=== PATIENT | male | born 1940 | race Caucasian/White ===

== ENCOUNTER 2017-09-28 09:18 | Day surgery (SDC) | payer MEDICARE, MEDICAID ==
[~2017-09-28 09:18] MED LIST: ALPR0.5T; AMIODORONE PO; B12 PO; DIGO0.1262 PO; FURO40TA PO; GLIP-115 PO; LEVO75TA6; MAG PO; METO25TA62 PO; POTA8TAB2 PO; VIT C PO; [UNRECOGNIZED DRUG - CODE] PO
[2017-09-28] MEDS ORDERED: LIDOCAINE VISCOUS 2% 15ML UD PO ONE (10:15)
[2017-09-28] MEDS ORDERED: FLUMAZENIL 0.1 MG/ML INJ 10ML MDV IV ONE (10:15)
[2017-09-28] MEDS ORDERED: NALOXONE HCL 0.4 MG/ML VIAL IV ONE (10:15)
[2017-09-28] MEDS ORDERED: MIDAZOLAM HCL 1MG/1ML-2 ML VIAL IV ONE (10:15)
[2017-09-28] MEDS ORDERED: fentaNYL CITRATE 100 MCG/2 ML VL IV ONE (10:15)
[2017-09-28] MEDS ORDERED: MIDAZOLAM HCL 1MG/1ML-2 ML VIAL ONE (11:17)
[2017-09-28] MEDS ORDERED: POTASSIUM CHL 20 Meq TABLET PO ONE ×2 (12:15→13:03)
[2017-09-28] MEDS ORDERED: ENOXAPARIN SOD 80 MG/0.8ML SYRINGE SC ONE (12:15)
[2017-09-28] MEDS ORDERED: FUROSEMIDE 100 MG/10ML VIAL IV ONE (12:15)
[2017-09-28] MEDS ORDERED: FUROSEMIDE INJECTION 10 ML ONE (13:02)
[2017-09-28] MEDS ORDERED: ENOXAPARIN SOD 100 MG/1 ML SYRINGE SC ONE (13:03)
== END 2017-09-28 14:20 | disposition home or self-care (01) ==
LOC: CATH 09:18
PROVIDERS: ATTEND Internal Medicine Cardiovascular Disease
DX: I48.91 Unspecified atrial fibrillation (principal); Z88.0 Allergy status to penicillin; Z88.2 Allergy status to sulfonamides; Z88.1 Allergy status to other antibiotic agents; Z88.8 Allergy status to other drugs, medicaments and biological substances; I50.9 Heart failure, unspecified; I20.9 Angina pectoris, unspecified; Z95.1 Presence of aortocoronary bypass graft; J40 Bronchitis, not specified as acute or chronic; Z87.891 Personal history of nicotine dependence; I10 Essential (primary) hypertension
CPT/HCPCS: 82962; 92960; 93312; J1650; J1940; J2250; J3010; J7040; 93005; 99152

== ENCOUNTER 2017-10-05 18:39 | Inpatient (IN) | payer MEDICARE, MEDICAID ==
[~2017-10-05] VITALS: Ht 177.8 cm; Wt 79.5 kg
[2017-10-05 20:01] LABS: Basophils # (auto) 0.1 uL; Basophils % (auto) 0.9 % (0.0-2.0); Eosinophils # (auto) 0.3 uL; Eosinophils % (auto) 4.2 % (0.0-7.0); Hematocrit 36.6 % (41.0-53.0); Hemoglobin 12.3 g/dL (13.5-17.5); Lymphocytes # (auto) 1.7 uL; Lymphocytes % (auto) 27.4 % (10.0-50.0); Mean Corpuscular Hemoglobin 30.2 pg (28.0-32.0); Mean Corpuscular Hgb Conc. 33.5 g/dL (32.0-36.0); Monocytes # (auto) 0.8 uL; Monocytes % (auto) 13.8 % (0.0-12.0); Neutrophils # (auto) 3.3 uL; Neutrophils % (auto) 53.7 % (37.0-80.0); Nucleated Red Blood Cells % 0.1 %; Platelet Count (auto) 280 10^3/uL (140-450); Red Blood Cells 4.07 10^6/uL (4.5-5.90); Red Cell Distribution Width 13.6 % (11.8-14.3); White Blood Cell 6.1 10^3/uL (4.4-10.8)
[2017-10-05 20:15] LABS: Alanine Aminotransferase 68 U/L (16-61); Albumin 3.4 g/dL (3.4-5.0); Anion Gap 9 (5-15); Aspartate Aminotransferase 39 U/L (15-37); BUN/Creatinine Ratio 25.6; Blood Urea Nitrogen 22 mg/dL (7-18); Calcium 8.9 mg/dL (8.5-10.1); Carbon Dioxide 28 mmol/L (21-32); Chloride 99 mmol/L (98-107); GFR African American 110 mL/min; GFR Non-African American 91 mL/min; Glucose 94 mg/dL (74-106); Magnesium 2.2 mg/dL (1.6-2.6); Potassium 4.2 mmol/L (3.5-5.1); Sodium 136 mmol/L (136-145)
[2017-10-05 20:20] LABS: Alkaline Phosphatase 113 U/L (45-117); Bilirubin, Total 0.4 mg/dL (0.2-1.0); Total Protein 7.7 g/dL (6.4-8.2)
[2017-10-06 02:47] LABS: Eosinophils # (auto) 0.1 uL; Hematocrit 41.2 % (41.0-53.0); Hemoglobin 13.3 g/dL (13.5-17.5); Mean Corpuscular Hemoglobin 26.5 pg (28.0-32.0); Monocytes # (auto) 0.4 uL; Nucleated Red Blood Cells % 0.1 %; Platelet Count (auto) 95 10^3/uL (140-450); White Blood Cell 6.2 10^3/uL (4.4-10.8)
[2017-10-06 02:49] LABS: Basophils # (auto) 0.1 uL; Basophils % (auto) 0.9 % (0.0-2.0); Eosinophils % (auto) 1.2 % (0.0-7.0); Lymphocytes # (auto) 2.2 uL; Lymphocytes % (auto) 34.7 % (10.0-50.0); Mean Corpuscular Hgb Conc. 32.4 g/dL (32.0-36.0); Monocytes % (auto) 5.9 % (0.0-12.0); Neutrophils # (auto) 3.6 uL; Neutrophils % (auto) 57.3 % (37.0-80.0); Red Blood Cells 5.02 10^6/uL (4.5-5.90); Red Cell Distribution Width 17.5 % (11.8-14.3)
[2017-10-06 02:59] LABS: Albumin 3.5 g/dL (3.4-5.0); BUN/Creatinine Ratio 16.9; Bilirubin, Total 0.9 mg/dL (0.2-1.0); Calcium 8.2 mg/dL (8.5-10.1); Potassium 4.3 mmol/L (3.5-5.1); Total Protein 7.6 g/dL (6.4-8.2)
[2017-10-06 05:23] LABS: Urine Bacteria FEW /hpf (None Seen); Urine Blood Negative /uL (Negative); Urine Hyaline Cast FEW /lpf (0 - 2); Urine Mucus FEW (None Seen); Urine Specific Gravity 1.012 (1.001-1.035); Urine WBC <1 /hpf (0 - 3)
[2017-10-06] MEDS ORDERED: LEVOFLOXACIN 500MG 100 ML IV ONE (09:00)
[2017-10-06] MEDS ORDERED: NITROGLYCERIN 0.4 MG SL TAB SL PRN (09:30)
[2017-10-06] MEDS ORDERED: LORazepam 0.5 MG TAB PO PRN (09:30)
[2017-10-06] MEDS ORDERED: MORPHINE SULFATE 10 MG/ML INJ 1ML SDV IV PRN ×2 (09:30)
[2017-10-06] MEDS ORDERED: PROMETHAZINE HCL 25 MG/ML 1ML IV PRN (09:30)
[2017-10-06] MEDS ORDERED: ALBUTEROL SULF 2.5 MG/0.5ML(0.5%) NEB SOLN NEB PRN (09:30)
[2017-10-06] MEDS ORDERED: LACTULOSE 20Gm/30ML SOLN PO PRN (09:30)
[2017-10-06] MEDS ORDERED: ACETAMINOPHEN 500 MG TAB PO PRN (09:30)
[2017-10-06] MEDS ORDERED: OSELTAMIVIR 75 MG CAP PO ONE (09:30)
[2017-10-06] MEDS ORDERED: HYDROcodone-ACET 5/325MG TAB PO PRN (09:30)
[2017-10-06] MEDS ORDERED: FUROSEMIDE 40 MG TAB PO SCH (09:30)
[2017-10-06] MEDS ORDERED: TEMAZEPAM 15 MG CAP PO PRN (09:30)
[2017-10-06] MEDS ORDERED: DEXTROSE (50%) 50ML SYRG IV PRN (09:30)
[2017-10-06] MEDS ORDERED: OSELTAMIVIR 75 MG CAP PO SCH (10:00)
[2017-10-06] MEDS ORDERED: AMIODARONE HCL 200 MG TAB PO SCH (10:15)
[2017-10-06] MEDS ORDERED: cefTRIAXone 1GM/10ml IVPUSH 10 ML IV ONE (10:15)
[2017-10-06] MEDS: CARVEDILOL 3.125 MG TAB PO SCH ×2 (10:25→22:30)
[2017-10-06] MEDS: ASPirin 81 mg TAB PO SCH (10:25)
[2017-10-06] MEDS: AZITHROMYCIN 500MG/ 250ML 250 ML IV SCH (10:25)
[2017-10-06] MEDS: glipiZIDE 5 MG TAB PO SCH (10:26)
[2017-10-06] MEDS: POTASSIUM CHLORIDE 8 MEQ TAB PO SCH (10:26)
[2017-10-06] MEDS: ENOXAPARIN SOD 40 MG/0.4 ML SYRINGE SC SCH (10:27)
[2017-10-06] MEDS: DIGOXIN 0.125 MG TAB PO SCH (10:27)
[2017-10-06] MEDS: ENALAPRIL MALEATE 2.5 MG TAB PO SCH ×2 (10:27→10:40)
[2017-10-06] MEDS: CYANOCOBALAMIN 500 MCG TAB PO SCH (10:28)
[2017-10-06] MEDS: MAGNESIUM OXIDE 400 MG TAB PO SCH (10:28)
[2017-10-06] MEDS: NITROGLYCERIN 0.2MG/HR TOPICAL PATCH TD SCH (10:30)
[2017-10-06] MEDS: ACCU-CHEK COMFORT CURVE STRIP VI SCH ×3 (11:53→22:29)
[2017-10-06] MEDS: InsuLIN REG 1unit/0.01ml Soln (100units/ml) SC SCH ×3 (11:53→22:30)
[2017-10-06] MEDS: ALBUTEROL SULF 2.5 MG/0.5ML(0.5%) NEB SOLN NEB SCH ×4 (13:11→23:10)
[2017-10-06] MEDS: SODIUM CHLOR 0.9% PF (SALINE LOCK) 10ML VIAL IV SCH ×2 (13:22→22:30)
[2017-10-06] MEDS: AMIODARONE HCL 200 MG TAB PO SCH (14:11)
[2017-10-06 17:00] VITALS: BP 108/67
[2017-10-06 21:50] VITALS: BP 97/53
[2017-10-06] MEDS: ASCORBIC ACID 500 MG TAB PO SCH (22:30)
[2017-10-07 03:35] VITALS: BP 97/53
[2017-10-07 05:32] VITALS: BP 98/55
[2017-10-07 05:54] LABS: Basophils # (auto) 0 uL; Eosinophils # (auto) 0 uL; Hemoglobin 12.2 g/dL (13.5-17.5); Lymphocytes # (auto) 0.9 uL; Monocytes # (auto) 0.2 uL; Neutrophils # (auto) 2.2 uL; Neutrophils % (auto) 65.9 % (37.0-80.0); Nucleated Red Blood Cells % 0.1 %; White Blood Cell 3.3 10^3/uL (4.4-10.8)
[2017-10-07 05:56] LABS: Basophils % (auto) 0.7 % (0.0-2.0); Eosinophils % (auto) 1.3 % (0.0-7.0); Lymphocytes % (auto) 26.1 % (10.0-50.0); Mean Corpuscular Hemoglobin 26.9 pg (28.0-32.0); Mean Corpuscular Volume 81.4 fL (80.0-100.0); Red Blood Cells 4.55 10^6/uL (4.5-5.90); Red Cell Distribution Width 17.2 % (11.8-14.3)
[2017-10-07 06:11] LABS: Platelet Count (auto) 64 10^3/uL (140-450)
[2017-10-07 06:19] LABS: BUN/Creatinine Ratio 15.7; Calcium 8.1 mg/dL (8.5-10.1); Potassium 4.4 mmol/L (3.5-5.1); Total Protein 7.1 g/dL (6.4-8.2)
[2017-10-07] MEDS: SODIUM CHLOR 0.9% PF (SALINE LOCK) 10ML VIAL IV SCH ×2 (06:26→14:08)
[2017-10-07] MEDS: ALBUTEROL SULF 2.5 MG/0.5ML(0.5%) NEB SOLN NEB SCH ×2 (06:32→11:32)
[2017-10-07] MEDS: ACCU-CHEK COMFORT CURVE STRIP VI SCH ×2 (06:33→11:24)
[2017-10-07] MEDS: InsuLIN REG 1unit/0.01ml Soln (100units/ml) SC SCH ×2 (06:33→11:30)
[2017-10-07 07:59] VITALS: BP 99/51
[2017-10-07] MEDS ORDERED: cefTRIAXone 1GM/10ml IVPUSH 10 ML IV SCH (09:00)
[2017-10-07] MEDS: ENOXAPARIN SOD 40 MG/0.4 ML SYRINGE SC SCH (09:01)
[2017-10-07] MEDS: AZITHROMYCIN 500MG/ 250ML 250 ML IV SCH (09:11)
[2017-10-07] MEDS: ASCORBIC ACID 500 MG TAB PO SCH (09:11)
[2017-10-07] MEDS: MAGNESIUM OXIDE 400 MG TAB PO SCH (09:12)
[2017-10-07] MEDS: DIGOXIN 0.125 MG TAB PO SCH (09:12)
[2017-10-07] MEDS: ASPirin 81 mg TAB PO SCH (09:12)
[2017-10-07] MEDS: CYANOCOBALAMIN 500 MCG TAB PO SCH (09:12)
[2017-10-07] MEDS: POTASSIUM CHLORIDE 8 MEQ TAB PO SCH (09:12)
[2017-10-07] MEDS: glipiZIDE 5 MG TAB PO SCH (09:13)
[2017-10-07] MEDS: ENALAPRIL MALEATE 2.5 MG TAB PO SCH (09:47)
[2017-10-07] MEDS: CARVEDILOL 3.125 MG TAB PO SCH (09:47)
[2017-10-07] MEDS: NITROGLYCERIN 0.2MG/HR TOPICAL PATCH TD SCH (09:47)
[2017-10-07] MEDS ORDERED: METOPROLOL SUCCINATE XL 50 MG TAB PO SCH (10:00)
[2017-10-07] MEDS ORDERED: LEVOTHYROXINE SODIUM 50 MCG TAB PO SCH (10:00)
[2017-10-07 13:00] VITALS: BP 99/57
[2017-10-07] MEDS: AMIODARONE HCL 200 MG TAB PO SCH (14:08)
[2017-10-07] MEDS ORDERED: ALBUAER3 IN (15:36)
[2017-10-07] MEDS ORDERED: AZIT250T8 PO (15:36)
[2017-10-07 16:57] VITALS: BP 109/62
== END 2017-10-07 16:56 | disposition home or self-care (01) | DRG 291 ==
LOC: EDBD 18:39 → ER 18:42 → TELE 18:43 → TELE-WESTW 10-06 12:15
PROVIDERS: ADMIT Internal Medicine; ATTEND Nurse Practitioner Acute Care
DX: I13.0 Hypertensive heart and chronic kidney disease with heart failure and stage 1 through stage 4 chronic kidney disease, or unspecified chronic kidney disease (principal); I50.43 Acute on chronic combined systolic (congestive) and diastolic (congestive) heart failure; J18.9 Pneumonia, unspecified organism; D68.59 Other primary thrombophilia; E11.22 Type 2 diabetes mellitus with diabetic chronic kidney disease; I48.0 Paroxysmal atrial fibrillation; N18.3 Chronic kidney disease, stage 3 (moderate); I25.5 Ischemic cardiomyopathy; I25.10 Atherosclerotic heart disease of native coronary artery without angina pectoris; K59.00 Constipation, unspecified; E03.9 Hypothyroidism, unspecified; I25.2 Old myocardial infarction; Z80.0 Family history of malignant neoplasm of digestive organs; Z82.49 Family history of ischemic heart disease and other diseases of the circulatory system; Z83.3 Family history of diabetes mellitus; Z87.891 Personal history of nicotine dependence; Z95.1 Presence of aortocoronary bypass graft; Z95.810 Presence of automatic (implantable) cardiac defibrillator; Z90.49 Acquired absence of other specified parts of digestive tract; Z80.8 Family history of malignant neoplasm of other organs or systems; Z95.5 Presence of coronary angioplasty implant and graft; Z88.2 Allergy status to sulfonamides; Z88.0 Allergy status to penicillin; Z88.8 Allergy status to other drugs, medicaments and biological substances; Z79.899 Other long term (current) drug therapy
CPT/HCPCS: 36415; 71045; 71250; 80053; 80061; 81001; 82550; 82962; 83036; 83735; 83880; 84443; 84484; 85025; 87040; 87070; 87081; 87205; 87400; 93005; 94640; 96365; 96367; 96372; J1815; J1956

== ENCOUNTER 2018-02-26 02:08 | Inpatient (IN) | payer MEDICARE, MEDICAID ==
[~2018-02-26] VITALS: Ht 177.8 cm; Wt 64.8 kg
[~2018-02-26 02:08] MED LIST changes: +ALBUAER3 IN; +AZIT250T8 PO
[2018-02-26 03:18] LABS: Platelet Count (auto) 38 10^3/uL (140-450); White Blood Cell 4.1 10^3/uL (4.4-10.8)
[2018-02-26 03:20] LABS: Hematocrit 38.3 % (41.0-53.0); Hemoglobin 12.4 g/dL (13.5-17.5); Mean Corpuscular Hemoglobin 25.7 pg (28.0-32.0); Mean Corpuscular Hgb Conc. 32.5 g/dL (32.0-36.0); Mean Corpuscular Volume 79.1 fL (80.0-100.0); Red Blood Cells 4.84 10^6/uL (4.5-5.90); Red Cell Distribution Width 15.4 % (11.8-14.3)
[2018-02-26 03:26] LABS: Basophils % (manual) 0 (0.0-2.0); Blast Cells 0; Metamyelocytes % 0; Myelocytes % 0; Promyelocytes % 0; Reactive Lymphocytes 0
[2018-02-26 03:32] LABS: Albumin 3.8 g/dL (3.4-5.0); Magnesium 2.3 mg/dL (1.6-2.6); Potassium 3.2 mmol/L (3.5-5.1)
[2018-02-26 03:34] LABS: BUN/Creatinine Ratio 14.1
[2018-02-26 03:39] LABS: Bilirubin, Total 0.6 mg/dL (0.2-1.0); Total Protein 8.5 g/dL (6.4-8.2)
[2018-02-26 03:57] LABS: Band Neutrophils % (manual) 4; Eosinophils % (manual) 1 (0-7); Lymphocytes % (manual) 20 (10.0-50.0); Monocytes % (manual) 6 (0-12)
[2018-02-26] MEDS ORDERED: POTASSIUM CHL 20 Meq TABLET PO ONE ×3 (05:15→18:15)
[2018-02-26] MEDS ORDERED: FUROSEMIDE 20 MG/2 ML VIAL IV ONE (05:15)
[2018-02-26 05:36] LABS: Urine Bacteria FEW /hpf (None Seen); Urine Blood Negative /uL (Negative); Urine Mucus FEW (None Seen); Urine Specific Gravity 1.005 (1.001-1.035); Urine WBC <1 /hpf (0 - 3)
[2018-02-26] MEDS ORDERED: NITROGLYCERIN 0.4 MG SL TAB SL PRN (05:45)
[2018-02-26] MEDS ORDERED: ACETAMINOPHEN 325 MG TAB PO PRN (05:45)
[2018-02-26] MEDS ORDERED: MORPHINE SULF(PF) 0.5MG/ML 10ML VIAL IV PRN (05:45)
[2018-02-26] MEDS ORDERED: ALBUTEROL SULF 2.5 MG/0.5ML(0.5%) NEB SOLN NEB PRN (05:45)
[2018-02-26] MEDS ORDERED: TEMAZEPAM 15 MG CAP PO PRN (05:45)
[2018-02-26] MEDS ORDERED: DOCUSATE SOD 100 MG CAP PO PRN (05:45)
[2018-02-26] MEDS ORDERED: ONDANSETRON HCL 4 MG/2 ML VIAL IV PRN (05:45)
[2018-02-26] MEDS ORDERED: HYDROcodone-ACET 5/325MG TAB PO PRN (05:45)
[2018-02-26] MEDS: FUROSEMIDE 20 MG/2 ML VIAL IV SCH ×2 (06:00→18:00)
[2018-02-26 06:04] VITALS: BP 128/60
[2018-02-26] MEDS ORDERED: glyBURIDE 5 MG TAB PO SCH (07:00)
[2018-02-26] MEDS: LEVOTHYROXINE SODIUM 25 MCG TAB PO SCH (07:08)
[2018-02-26] MEDS: glipiZIDE 5 MG TAB PO SCH (08:24)
[2018-02-26] MEDS ORDERED: ENOXAPARIN SOD 30 MG/0.3 ML SYRINGE SC SCH (10:00)
[2018-02-26] MEDS ORDERED: ASPirin 81 mg TAB PO SCH (10:00)
[2018-02-26] MEDS ORDERED: AMIODARONE HCL 200 MG TAB PO SCH (10:00)
[2018-02-26] MEDS ORDERED: ENOXAPARIN SOD 40 MG/0.4 ML SYRINGE SC SCH (10:00)
[2018-02-26] MEDS: POTASSIUM CHL 20 Meq TABLET PO SCH (10:41)
[2018-02-26] MEDS: METOPROLOL SUCCINATE XL 50 MG TAB PO SCH (10:42)
[2018-02-26] MEDS: PANTOPRAZOLE 40 MG TAB PO SCH (10:42)
[2018-02-26] MEDS: DIGOXIN 0.125 MG TAB PO SCH (10:42)
[2018-02-26 18:09] VITALS: BP 128/68
[2018-02-26] MEDS ORDERED: MEX150C PO (21:37)
[2018-02-26 22:00] VITALS: BP 124/55
[2018-02-26] MEDS ORDERED: HYDROcodone-ACET 5/325MG TAB PO ONE (22:45)
[2018-02-27 05:22] VITALS: BP 109/63
[2018-02-27] MEDS: HYDROcodone-ACET 5/325MG TAB PO PRN ×4 (05:30→23:16)
[2018-02-27] MEDS: FUROSEMIDE 20 MG/2 ML VIAL IV SCH ×2 (05:56→18:02)
[2018-02-27] MEDS: LEVOTHYROXINE SODIUM 25 MCG TAB PO SCH (06:28)
[2018-02-27] MEDS: glipiZIDE 5 MG TAB PO SCH (06:34)
[2018-02-27 07:55] LABS: Basophils # (auto) 0 uL; Eosinophils # (auto) 0.1 uL; Hemoglobin 10.6 g/dL (13.5-17.5); Lymphocytes # (auto) 1.1 uL; Monocytes # (auto) 0.3 uL
[2018-02-27 07:58] LABS: Hematocrit 33.1 % (41.0-53.0); Lymphocytes % (auto) 31.4 % (10.0-50.0); Mean Corpuscular Hemoglobin 25.6 pg (28.0-32.0); Mean Corpuscular Hgb Conc. 32.1 g/dL (32.0-36.0); Mean Corpuscular Volume 79.9 fL (80.0-100.0); Monocytes % (auto) 8.3 % (0.0-12.0); Neutrophils % (auto) 57.3 % (37.0-80.0); Nucleated Red Blood Cells % 0.1 %; Platelet Count (auto) 32 10^3/uL (140-450); Red Blood Cells 4.14 10^6/uL (4.5-5.90); Red Cell Distribution Width 15.5 % (11.8-14.3); White Blood Cell 3.5 10^3/uL (4.4-10.8)
[2018-02-27 08:20] LABS: Albumin 3.2 g/dL (3.4-5.0); BUN/Creatinine Ratio 16.5; Potassium 4.2 mmol/L (3.5-5.1); Total Protein 7.1 g/dL (6.4-8.2)
[2018-02-27 09:00] VITALS: BP 106/57
[2018-02-27] MEDS: DIGOXIN 0.125 MG TAB PO SCH (09:51)
[2018-02-27] MEDS: PANTOPRAZOLE 40 MG TAB PO SCH (09:52)
[2018-02-27] MEDS: METOPROLOL SUCCINATE XL 50 MG TAB PO SCH (09:52)
[2018-02-27] MEDS: POTASSIUM CHL 20 Meq TABLET PO SCH (09:52)
[2018-02-27] MEDS ORDERED: DEXTROSE (50%) 50ML SYRG IV PRN (11:45)
[2018-02-27 13:00] VITALS: BP 114/66
[2018-02-27] MEDS: ACCU-CHEK COMFORT CURVE STRIP VI SCH ×3 (13:39→21:38)
[2018-02-27] MEDS: InsuLIN REG 1unit/0.01ml Soln (100units/ml) SC SCH ×3 (13:39→21:38)
[2018-02-27 17:00] VITALS: BP 117/62
[2018-02-27] MEDS ORDERED: AMIODARONE HCL 200 MG TAB PO SCH (19:00)
[2018-02-27 22:00] VITALS: BP 125/69
[2018-02-28 05:00] VITALS: BP 110/52
[2018-02-28] MEDS: FUROSEMIDE 20 MG/2 ML VIAL IV SCH (05:33)
[2018-02-28] MEDS: LEVOTHYROXINE SODIUM 25 MCG TAB PO SCH (06:57)
[2018-02-28] MEDS: glipiZIDE 5 MG TAB PO SCH (06:57)
[2018-02-28] MEDS: ACCU-CHEK COMFORT CURVE STRIP VI SCH ×2 (06:59→11:32)
[2018-02-28] MEDS: InsuLIN REG 1unit/0.01ml Soln (100units/ml) SC SCH ×2 (06:59→11:32)
[2018-02-28 07:06] LABS: Basophils # (auto) 0 uL; Basophils % (auto) 0.5 % (0.0-2.0); Lymphocytes # (auto) 1.1 uL; Monocytes # (auto) 0.3 uL; Monocytes % (auto) 7.9 % (0.0-12.0); White Blood Cell 4.1 10^3/uL (4.4-10.8)
[2018-02-28 07:09] LABS: Eosinophils # (auto) 0 uL; Hematocrit 33.6 % (41.0-53.0); Hemoglobin 11.1 g/dL (13.5-17.5); Lymphocytes % (auto) 26.1 % (10.0-50.0); Mean Corpuscular Hemoglobin 25.9 pg (28.0-32.0); Mean Corpuscular Hgb Conc. 32.9 g/dL (32.0-36.0); Mean Corpuscular Volume 78.7 fL (80.0-100.0); Neutrophils # (auto) 2.7 uL; Neutrophils % (auto) 64.5 % (37.0-80.0); Platelet Count (auto) 30 10^3/uL (140-450); Red Blood Cells 4.27 10^6/uL (4.5-5.90); Red Cell Distribution Width 15.9 % (11.8-14.3)
[2018-02-28 07:30] LABS: BUN/Creatinine Ratio 18.6; Calcium 8.4 mg/dL (8.5-10.1); Magnesium 2.6 mg/dL (1.6-2.6); Potassium 4.2 mmol/L (3.5-5.1)
[2018-02-28] MEDS: HYDROcodone-ACET 5/325MG TAB PO PRN (07:55)
[2018-02-28 08:00] VITALS: BP 123/53
[2018-02-28] MEDS: DIGOXIN 0.125 MG TAB PO SCH (09:20)
[2018-02-28] MEDS: POTASSIUM CHL 20 Meq TABLET PO SCH (09:20)
[2018-02-28] MEDS: PANTOPRAZOLE 40 MG TAB PO SCH (09:20)
[2018-02-28] MEDS: METOPROLOL SUCCINATE XL 50 MG TAB PO SCH (09:26)
[2018-02-28 09:45] VITALS: BP 123/53
[2018-02-28 12:25] VITALS: BP 123/53
== END 2018-02-28 12:47 | disposition home or self-care (01) | DRG 291 ==
LOC: ER 02:08 → TELE 02:09 → TELE-CENTR 20:23
PROVIDERS: ADMIT Nurse Practitioner; ATTEND Internal Medicine
DX: I13.0 Hypertensive heart and chronic kidney disease with heart failure and stage 1 through stage 4 chronic kidney disease, or unspecified chronic kidney disease (principal); I50.43 Acute on chronic combined systolic (congestive) and diastolic (congestive) heart failure; D69.3 Immune thrombocytopenic purpura; D68.59 Other primary thrombophilia; Z98.52 Vasectomy status; Z95.1 Presence of aortocoronary bypass graft; I25.10 Atherosclerotic heart disease of native coronary artery without angina pectoris; N18.3 Chronic kidney disease, stage 3 (moderate); I48.0 Paroxysmal atrial fibrillation; I70.0 Atherosclerosis of aorta; E11.22 Type 2 diabetes mellitus with diabetic chronic kidney disease; E87.6 Hypokalemia; D69.6 Thrombocytopenia, unspecified; I25.5 Ischemic cardiomyopathy; E03.9 Hypothyroidism, unspecified; I25.2 Old myocardial infarction; Z82.49 Family history of ischemic heart disease and other diseases of the circulatory system; Z83.3 Family history of diabetes mellitus; Z95.810 Presence of automatic (implantable) cardiac defibrillator; Z98.61 Coronary angioplasty status; Z79.899 Other long term (current) drug therapy; Z88.1 Allergy status to other antibiotic agents; Z88.0 Allergy status to penicillin; Z88.6 Allergy status to analgesic agent
CPT/HCPCS: 36415; 71045; 80048; 80053; 80162; 81001; 82962; 83036; 83735; 83880; 84443; 84484; 85007; 85025; 85027; 87081; 93306; 96372; 96374; J1815

== ENCOUNTER 2019-05-15 05:40 | Emergency (ER) | payer MEDICARE, MEDICAID ==
[~2019-05-15] VITALS: Ht 177.8 cm; Wt 77.1 kg
[~2019-05-15 05:40] MED LIST changes: +FURO1TAB31 PO; -FURO40TA PO; -GLIP-115 PO; +MEX150C PO
[2019-05-15] MEDS ORDERED: SODIUM CHLORIDE 0.9% 1,000 ML IV ONE (05:54)
[2019-05-15 06:13] LABS: Basophils # (auto) 0 uL; Eosinophils # (auto) 0.1 uL; Hemoglobin 12.5 g/dL (13.5-17.5); Lymphocytes # (auto) 1.2 uL; Nucleated Red Blood Cells % 0.1 %; Red Cell Distribution Width 16.8 % (11.8-14.3)
[2019-05-15 06:15] LABS: Basophils % (auto) 1.1 % (0.0-2.0); Eosinophils % (auto) 1.7 % (0.0-7.0); Hematocrit 38.1 % (41.0-53.0); Lymphocytes % (auto) 32.9 % (10.0-50.0); Mean Corpuscular Hemoglobin 28.2 pg (28.0-32.0); Mean Corpuscular Hgb Conc. 32.8 g/dL (32.0-36.0); Mean Corpuscular Volume 85.7 fL (80.0-100.0); Monocytes # (auto) 0.4 uL; Monocytes % (auto) 9.7 % (0.0-12.0); Neutrophils % (auto) 54.6 % (37.0-80.0); Red Blood Cells 4.45 10^6/uL (4.5-5.90); White Blood Cell 3.7 10^3/uL (4.4-10.8)
[2019-05-15 06:40] LABS: Albumin 3.3 g/dL (3.4-5.0); BUN/Creatinine Ratio 12.5; Calcium 8.1 mg/dL (8.5-10.1); Potassium 3.8 mmol/L (3.5-5.1)
[2019-05-15 06:42] LABS: Platelet Count (auto) 45 10^3/uL (140-450)
[2019-05-15 06:44] LABS: Bilirubin, Total 0.7 mg/dL (0.2-1.0); Total Protein 7.2 g/dL (6.4-8.2)
[2019-05-15 07:04] LABS: Urine WBC None Seen /hpf (0 - 3)
[2019-05-15 07:10] LABS: Urine Bacteria FEW /hpf (None Seen); Urine Blood Negative /uL (Negative); Urine Mucus FEW (None Seen); Urine Specific Gravity 1.004 (1.001-1.035)
[2019-05-15] MEDS ORDERED: FUROSEMIDE 20 MG/2 ML VIAL IV ONE (07:45)
[2019-05-15 08:42] VITALS: BP 144/65
== END 2019-05-15 09:10 | disposition home or self-care (01) ==
LOC: ER 05:44
DX: R55 Syncope and collapse (principal); E11.22 Type 2 diabetes mellitus with diabetic chronic kidney disease; N18.3 Chronic kidney disease, stage 3 (moderate); I50.9 Heart failure, unspecified; I48.91 Unspecified atrial fibrillation; I25.810 Atherosclerosis of coronary artery bypass graft(s) without angina pectoris; I25.2 Old myocardial infarction; E07.9 Disorder of thyroid, unspecified; Z88.1 Allergy status to other antibiotic agents; Z88.2 Allergy status to sulfonamides; Z88.0 Allergy status to penicillin; Z79.899 Other long term (current) drug therapy; Z90.49 Acquired absence of other specified parts of digestive tract; Z95.1 Presence of aortocoronary bypass graft; Z98.61 Coronary angioplasty status
CPT/HCPCS: 36415; 70450; 71045; 73030; 80053; 81001; 82962; 83880; 84484; 85025; 96361; 96374; 99284; J1940; J7030; 93005

== ENCOUNTER 2019-06-09 00:41 | Inpatient (IN) | payer MEDICARE, MEDICAID ==
[~2019-06-09] VITALS: Ht 177.8 cm; Wt 90.8 kg
[~2019-06-09 00:41] MED LIST changes: -LEVO75TA6; +LEVO75TA6 PO
[2019-06-09 02:32] LABS: Albumin 3.2 g/dL (3.4-5.0); BUN/Creatinine Ratio 20.3; Magnesium 2.2 mg/dL (1.6-2.6); Potassium 4.3 mmol/L (3.5-5.1)
[2019-06-09 02:37] LABS: Bilirubin, Total 0.8 mg/dL (0.2-1.0); Total Protein 6.9 g/dL (6.4-8.2)
[2019-06-09 02:46] LABS: Basophils # (auto) 0 uL; Eosinophils # (auto) 0 uL; Hemoglobin 10.8 g/dL (13.5-17.5); Neutrophils # (auto) 2.8 uL; Red Cell Distribution Width 16.2 % (11.8-14.3)
[2019-06-09 02:47] LABS: Basophils % (auto) 0.9 % (0.0-2.0); Eosinophils % (auto) 0.9 % (0.0-7.0); Hematocrit 32.2 % (41.0-53.0); Lymphocytes % (auto) 23.6 % (10.0-50.0); Mean Corpuscular Hemoglobin 28.6 pg (28.0-32.0); Mean Corpuscular Hgb Conc. 33.7 g/dL (32.0-36.0); Mean Corpuscular Volume 84.9 fL (80.0-100.0); Monocytes # (auto) 0.3 uL; Monocytes % (auto) 6.6 % (0.0-12.0); Platelet Count (auto) 59 10^3/uL (140-450); Red Blood Cells 3.79 10^6/uL (4.5-5.90); White Blood Cell 4.1 10^3/uL (4.4-10.8)
[2019-06-09] MEDS: CLOPIDOGREL BISULFATE 75 MG TAB PO SCH ×2 (10:00→11:29)
[2019-06-09] MEDS ORDERED: ASPirin-EC 81 mg tab PO ONE (11:45)
[2019-06-09] MEDS ORDERED: NITROGLYCERIN 0.4 MG SL TAB SL PRN (11:45)
[2019-06-09] MEDS: SODIUM CHLORIDE 0.9% 1,000 ML IV SCH ×2 (11:45→21:23)
[2019-06-09] MEDS ORDERED: MORPHINE SULF INJ 2 MG/ML SYRINGE 1ML IV PRN (11:45)
[2019-06-09] MEDS ORDERED: FUROSEMIDE 40 MG TAB PO SCH (11:45)
[2019-06-09] MEDS ORDERED: DEXTROSE (50%) 50ML SYRG IV PRN (12:00)
[2019-06-09] MEDS ORDERED: diphenhdrAMINE HCL 50 MG/1 ML VL IV ONE (12:15)
[2019-06-09] MEDS ORDERED: FAMOTIDINE (10MG/ML) 2ML VL IV ONE (12:15)
[2019-06-09] MEDS ORDERED: methylPREDNISolone SOD SUCC 125 MG/2 ML VL IV ONE (12:15)
[2019-06-09] MEDS ORDERED: IODIXANOL 320MG/ML 100ML BTL IV ONE (13:03)
[2019-06-09] MEDS ORDERED: INSUINJ18 SC (16:09)
[2019-06-09] MEDS ORDERED: METO-169 PO (16:09)
[2019-06-09] MEDS ORDERED: ACET-1158 PO (16:09)
[2019-06-09] MEDS ORDERED: BUDE2SUS3 IN (16:09)
[2019-06-09] MEDS ORDERED: MAGN400T5 PO (16:09)
[2019-06-09] MEDS ORDERED: AMIO200T33 PO (16:09)
[2019-06-09] MEDS ORDERED: ATOR40TA52 PO (16:09)
[2019-06-09] MEDS: ACCU-CHEK COMFORT CURVE STRIP VI SCH ×2 (16:35→21:55)
[2019-06-09] MEDS: InsuLIN REG 1unit/0.01ml Soln (100units/ml) SC SCH ×2 (16:35→21:54)
[2019-06-09 17:00] VITALS: BP 109/57
--- NOTE | 2019-06-09 19:00 | NUR ---
Opening Shift Note Assumed care of patient, awake and alert. No S/S of distress/SOB or pain. Instructed on POC and to call for assist PRN, will continue to monitor for changes Q1hr and PRN.
--- NOTE | 2019-06-09 21:56 | NUR ---
Hospitalist paged: Patient complaining of insomnia and having a history of difficulty sleeping. Hospitalist paged for sleeping aide.
[2019-06-09 22:00] VITALS: BP 118/59
--- NOTE | 2019-06-09 22:09 | NUR ---
Hospitalist returned page: Hospitalist updated on patient condition and situation. New orders received and verified.
[2019-06-09] MEDS: TEMAZEPAM 15 MG CAP PO PRN (22:36)
[2019-06-10 05:00] VITALS: BP 131/64
[2019-06-10] MEDS: InsuLIN REG 1unit/0.01ml Soln (100units/ml) SC SCH ×4 (06:30→21:39)
[2019-06-10] MEDS: ACCU-CHEK COMFORT CURVE STRIP VI SCH ×4 (06:31→21:39)
[2019-06-10] MEDS: LEVOTHYROXINE SODIUM 100 MCG TAB PO SCH (06:31)
[2019-06-10 07:17] LABS: Basophils # (auto) 0 uL; Basophils % (auto) 0.2 % (0.0-2.0); Eosinophils # (auto) 0 uL; Eosinophils % (auto) 0.1 % (0.0-7.0); Hematocrit 33.8 % (41.0-53.0); Hemoglobin 11.2 g/dL (13.5-17.5); Lymphocytes # (auto) 0.6 uL; Lymphocytes % (auto) 13.6 % (10.0-50.0); Mean Corpuscular Hemoglobin 28.5 pg (28.0-32.0); Mean Corpuscular Hgb Conc. 33.2 g/dL (32.0-36.0); Mean Corpuscular Volume 85.6 fL (80.0-100.0); Monocytes # (auto) 0.2 uL; Monocytes % (auto) 3.6 % (0.0-12.0); Neutrophils # (auto) 3.9 uL; Neutrophils % (auto) 82.5 % (37.0-80.0); Nucleated Red Blood Cells % 0.1 %; Platelet Count (auto) 67 10^3/uL (140-450); Red Blood Cells 3.95 10^6/uL (4.5-5.90); Red Cell Distribution Width 16.3 % (11.8-14.3); White Blood Cell 4.7 10^3/uL (4.4-10.8)
--- NOTE | 2019-06-10 07:23 | NUR ---
paging dr Parsons per the pharmacy's hold on plavix, due to patient having both aspirin and plavix with a low platelet count of 59 new labs are coming in for platelets this morning however speaking with admitting RAFIQ Waggoner, states cardio placed those orders in regards to the patient's CT Will confirm and clarify with dr Parsons and clarify with pharmacy
[2019-06-10 07:27] LABS: INR 1.23 (0.9-1.15); Partial Thromboplastin Time 35.2 sec (23.64-32.05)
[2019-06-10 07:33] LABS: Albumin 2.9 g/dL (3.4-5.0); BUN/Creatinine Ratio 22.3; Calcium 7.9 mg/dL (8.5-10.1); Potassium 4.6 mmol/L (3.5-5.1)
[2019-06-10 07:36] LABS: Bilirubin, Total 0.9 mg/dL (0.2-1.0); Total Protein 6.6 g/dL (6.4-8.2)
[2019-06-10] MEDS: SODIUM CHLORIDE 0.9% 1,000 ML IV SCH ×2 (07:47→17:29)
--- NOTE | 2019-06-10 07:47 | NUR ---
Opening patient awake in bed, bed in lowest position, call light within reach. No distress noted at this time. Will f/u with morning assessment. Currently pending cardiac consult with dr dean, and wound consult today new labs wbc 4.7 rbc 3.95 hgb 11.2 pt 13.1 inr 1.23 aptt 35.2 patient has a hold on plavix, per pharmacy, patient is on both plavix and aspirin. Awaiting return call from Issa to clarify these orders, however rut states to give the Aspirin, and talk with MD Dean about the plavix, because pharmacy has a hold currently
[2019-06-10 09:00] VITALS: BP 118/63
[2019-06-10] MEDS: METOPROLOL SUCCINATE XL 50 MG TAB PO SCH (09:19)
[2019-06-10] MEDS: AZITHROMYCIN 250 MG TAB PO SCH (09:19)
[2019-06-10] MEDS: ASPirin-EC 81 mg tab PO SCH (09:19)
[2019-06-10] MEDS ORDERED: MEXILETINE HYDROCHLORIDE 150 MG CAP PO SCH (10:00)
[2019-06-10] MEDS ORDERED: DIGOXIN 0.125 MG TAB PO SCH (10:00)
[2019-06-10] MEDS: AMIODARONE HCL 200 MG TAB PO SCH (10:00)
--- NOTE | 2019-06-10 10:15 | NUR ---
WOUND CARE NOTE: IN TO SEE PATIENT AT THIS TIME PER WOUND CARE CONSULT REQUEST. PATIENT NOTED TO HAVE OPEN WOUND TO LEFT WRIST AND ECCHYMOSIS TO LEFT HIP UPON ADMIT. WOUND PHOTOS TAKEN AT THAT TIME BY BEDSIDE NURSE FOR REFERENCE. PATIENT WAS ADMITTED TO [facility] WITH DIAGNOSIS NSTEMI. HE HAS CURRENT LOIS SCORE OF 18. PATIENT CAN SELF TURN/REPOSITION SELF. SKIN/WOUND CARE PLAN IMPLEMENTED. PATIENT NOTED TO HAVE SKIN TEAR TO THE LEFT WRIST. PATIENT STATES THAT HE OBTAINED SKIN TEAR WHILE AT ANOTHER FACILITY. WOUND MEASURES 2 X 2 CM. WOUND IS PARTIAL THICKNESS. APPLIED THERAHONEY, OPTIFOAM GENTLE DRESSING. 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 LEFT OPEN TO AIR. RECOMMEND: Q 3 DAY/PRN DRESSING CHANGE TO LEFT WRIST SKIN TEAR, SKIN/WOUND CARE PLAN, DIETARY CONSULT FOR WOUND. NO FURTHER WOUND CARE IS NEEDED AT THIS TIME. Addendum: 06/10/19 at 1706 by Becky Garza RN Amended: Links added.
[2019-06-10 13:00] VITALS: BP 110/57
[2019-06-10] MEDS ORDERED: THROAT LOZENGES(CEPASTAT) MT PRN (15:30)
[2019-06-10 17:00] VITALS: BP 127/62
[2019-06-10] MEDS: ATORVASTATIN 20 MG TAB PO SCH (21:39)
[2019-06-10 22:00] VITALS: BP 122/71
[2019-06-11] MEDS: TEMAZEPAM 15 MG CAP PO PRN (03:38)
[2019-06-11] MEDS: SODIUM CHLORIDE 0.9% 1,000 ML IV SCH ×3 (03:45→15:36)
[2019-06-11 05:00] VITALS: BP 116/59
[2019-06-11] MEDS: LEVOTHYROXINE SODIUM 100 MCG TAB PO SCH (06:33)
[2019-06-11] MEDS: ACCU-CHEK COMFORT CURVE STRIP VI SCH ×4 (06:33→22:34)
[2019-06-11] MEDS: InsuLIN REG 1unit/0.01ml Soln (100units/ml) SC SCH ×4 (06:34→22:34)
[2019-06-11 08:00] VITALS: BP 120/63
[2019-06-11 09:00] VITALS: BP 120/63
--- NOTE | 2019-06-11 09:22 | NUR ---
US TECH AT BEDSIDE. PT BROUGHT DOWN FOR PROCEDURE
--- NOTE | 2019-06-11 09:27 | NUR ---
ROUNDING MD Dixie SIMON ROUNDING. PT CURRENTLY OFF UNIT. NEW ORDERS RECEIVED.
--- NOTE | 2019-06-11 09:45 | NUR ---
PT IN ULTRASOUND FOR A THORACENTESIS BY DR EAGLE. VS 130/69-60-18-99%. 1000: 129/57-60-18-99%. FINISHED WITH PROCEDURE. PT TOLERATED WELL. 1600 ML OF BURGUNDY FLUID REMOVED AND SENT TO THE LAB. POST CXR DONE.
[2019-06-11] MEDS: METOPROLOL SUCCINATE XL 50 MG TAB PO SCH (10:00)
[2019-06-11] MEDS: ASPirin-EC 81 mg tab PO SCH (11:21)
[2019-06-11] MEDS: CLOPIDOGREL BISULFATE 75 MG TAB PO SCH (11:22)
[2019-06-11] MEDS: AZITHROMYCIN 250 MG TAB PO SCH (11:22)
[2019-06-11] MEDS: AMIODARONE HCL 200 MG TAB PO SCH (11:22)
[2019-06-11] MEDS: cefTRIAXone 1GM/50ML D5W 50 ML IV SCH (11:48)
--- NOTE | 2019-06-11 12:37 | NUR ---
NUTRITION CONSULT/ASSESSMENT NOTES Please refer to link notes of nutrition screen form filed under the intervention section of the plan of care for further details. Est. Needs: 2050 kcal to 2450 kcal (25-30 kcal/kgBW), 82 gms to 98 gms pro (1.0-1.2 gms/kgBW). Will continue to monitor pertinent labs and reassess nutrient need prn Thank you for this consult. Addendum: 06/11/19 at [address] Amended: Links added.
[2019-06-11 13:00] VITALS: BP 121/67
[2019-06-11 17:00] VITALS: BP 121/60
--- NOTE | 2019-06-11 18:12 | NUR ---
PHARMACY CALLED REGARDING CLARIFICATION OF LASIX ORDER. WILL CALL MD REGARDING LASIX 20MG PO
--- NOTE | 2019-06-11 19:35 | NUR ---
Opening Shift Note Assumed care of patient, awake and alert x4. Patient denies pain at this time. No signs/symptoms of distress/shortness of breath noted at this time. Instructed on plan of care and to call for assistance as needed, patient verbalized understanding. Bed is locked in lowest position, side rails x 2 are up, call light is within reach, and bed alarm is on.
[2019-06-11 22:03] VITALS: BP 133/62
[2019-06-11] MEDS: ATORVASTATIN 20 MG TAB PO SCH (22:34)
[2019-06-12 05:14] VITALS: BP 115/59
--- NOTE | 2019-06-12 06:20 | NUR ---
WOUND CARE Patient noted to have skin tear to left arm. Skin tear cleaned with clean soap and water, patted dry, therahoney applied, and optifoam applied.
[2019-06-12] MEDS: LEVOTHYROXINE SODIUM 100 MCG TAB PO SCH (06:23)
[2019-06-12] MEDS: ACCU-CHEK COMFORT CURVE STRIP VI SCH ×4 (06:23→22:35)
[2019-06-12] MEDS: InsuLIN REG 1unit/0.01ml Soln (100units/ml) SC SCH ×4 (06:23→22:35)
--- NOTE | 2019-06-12 07:23 | NUR ---
OPENING SHIFT NOTE PT IS RESTING IN BED. RESPIRATIONS ARE EVEN AND NON-LABORED. BED IS LOCKED AND IN LOWEST POSITION. CALL LIGHT IS WITHIN REACH.
--- NOTE | 2019-06-12 08:34 | NUR ---
CALLED LANDING SIGNAL OFFICER REGARDING ECHO RESULTS. ACCORDING TO LANDING SIGNAL OFFICER RESULTS ARE STILL PENDING
--- NOTE | 2019-06-12 08:35 | NUR ---
NO BLEED PT HAS ACTIVE NOSE BLEED. UPON ASSESSMENT THERE IS NO POST NASAL DRIP. THE BLEED IS LOCATED IN THE RIGHT NARE. ICE AND GUAZE PACKING APPLIED. MD Dixie SIMON NOTIFIED. Addendum: 06/12/19 at 0852 by JOHAN OSEGUERA RN RN NOSE BLEED
--- NOTE | 2019-06-12 08:48 | NUR ---
MD Dixie SIMON RETURNED MANAN ALFARO AT BEDSIDE. ASSESSED PT. ORDERS RECIEVED AND IMPLEMENTED.
[2019-06-12 08:50] VITALS: BP 125/66
[2019-06-12] MEDS: AZITHROMYCIN 250 MG TAB PO SCH (09:03)
[2019-06-12] MEDS: AMIODARONE HCL 200 MG TAB PO SCH (09:03)
[2019-06-12] MEDS: ASPirin-EC 81 mg tab PO SCH (09:04)
[2019-06-12] MEDS: FUROSEMIDE 20 MG TAB PO SCH (09:04)
[2019-06-12] MEDS: cefTRIAXone 1GM/50ML D5W 50 ML IV SCH (09:04)
[2019-06-12] MEDS: CLOPIDOGREL BISULFATE 75 MG TAB PO SCH (09:04)
[2019-06-12] MEDS: METOPROLOL SUCCINATE XL 50 MG TAB PO SCH (09:05)
[2019-06-12] MEDS: SODIUM CHLORIDE 0.9% 1,000 ML IV SCH (09:06)
--- NOTE | 2019-06-12 09:20 | NUR ---
ROUNDING MD Dixie SIMON AT BEDSIDE. ALL QUESTIONS AND CONCERNS ADDRESSED. NEW ORDERS RECEIVED.
--- NOTE | 2019-06-12 09:34 | NUR ---
NOSE BLEED REASSESSMENT REASSESSED PT NOSE BLEED. BLEEDING HAS STOPPPED. VITAL SIGNS ARE WNL. WILL CONTINUE TO MONITOR
[2019-06-12] MEDS ORDERED: ADENOSINE 76 MG in GIVE UN-DILUTED 0 ML IV STA (09:57)
--- NOTE | 2019-06-12 10:50 | NUR ---
PAGED MD RODRIGES REGARDING ADENSOINE ORDER. AWAITING CALL BACK
[2019-06-12 11:45] LABS: Calcium 8.1 mg/dL (8.5-10.1); Potassium 4.2 mmol/L (3.5-5.1)
[2019-06-12 11:52] LABS: Albumin 3.1 g/dL (3.4-5.0); BUN/Creatinine Ratio 22.8; Bilirubin, Total 1.4 mg/dL (0.2-1.0); Total Protein 6.8 g/dL (6.4-8.2)
[2019-06-12 12:07] LABS: INR 1.17 (0.9-1.15); Partial Thromboplastin Time 25.9 sec (23.64-32.05)
[2019-06-12 13:00] VITALS: BP 126/66
[2019-06-12 13:24] LABS: Basophils # (auto) 0 uL; Eosinophils # (auto) 0 uL; Eosinophils % (auto) 0.5 % (0.0-7.0); Hemoglobin 11.2 g/dL (13.5-17.5); Monocytes # (auto) 0.2 uL; Monocytes % (auto) 4.8 % (0.0-12.0); Neutrophils # (auto) 3.7 uL; White Blood Cell 4.4 10^3/uL (4.4-10.8)
[2019-06-12 13:26] LABS: Basophils % (auto) 0.5 % (0.0-2.0); Hematocrit 34.8 % (41.0-53.0); Lymphocytes # (auto) 0.5 uL; Lymphocytes % (auto) 11.5 % (10.0-50.0); Mean Corpuscular Hemoglobin 28.2 pg (28.0-32.0); Mean Corpuscular Hgb Conc. 32.1 g/dL (32.0-36.0); Neutrophils % (auto) 82.7 % (37.0-80.0); Platelet Count (auto) 61 10^3/uL (140-450); Red Blood Cells 3.95 10^6/uL (4.5-5.90); Red Cell Distribution Width 16.5 % (11.8-14.3)
--- NOTE | 2019-06-12 13:30 | NUR ---
PT EXPERIENCING SOB. PT COMPLAINGIN OF SOB AT REST. UPON ASSESSMENT LUNG SOUNDS ARE CLEAR AND VITAL SIGNS ARE WITHIN NORMAL LIMITS WITH EXCEPTION OF SPO2 BEING 88% PT PUT BACK ON 2.5L OF OXYGEN WITH HUMIDIFIER. WILL PAGE REGARDING SOB
--- NOTE | 2019-06-12 14:00 | NUR ---
ROXANN ALFARO REGARDING CBC RESULTS
--- NOTE | 2019-06-12 14:06 | NUR ---
RETURNED PAGE REGARDING CBC RESULTS AND SOB. NEW ORDERS RECEIVED. WILL IMPLEMENT ORDERS STAT
--- NOTE | 2019-06-12 15:05 | NUR ---
ABG RESULTS GLOBAL MANAGER JAYA REGARDING ABG RESULTS. ACCORDING TO GLOBAL MANAGER PT QUALIFIES FOR HOME OXYGEN
--- NOTE | 2019-06-12 15:25 | NUR ---
RE-PAGED MD RODRIGES REGARDING ADENOSINE ORDER. AWAITING CALL BACK.
--- NOTE | 2019-06-12 16:10 | NUR ---
PAGED REGARDING HOME OXYGEN PER MD Dixie SIMON WILL BE TAKEN CARE OF TOMORROW MORNING
--- NOTE | 2019-06-12 16:43 | NUR ---
Discharge planning per consult, patient has orders for home 02. referral faxed to [facility]. Called the attending nurse Grecia, and advised that Dr. Myles only indicated home oxygen and that the order needed clarity as far as instructions and liter flow. Nurse called Dr. Myles and advised and she said he will update it in the am as patient is not discharging today 06.12.19. Placed a follow up call to [facility], spoke with Deborah, and advised that the updated order will be sent via fax in the am. She advised that they will begin creating the account and working on the order to expedite delivery for discharge. Addendum: 06/12/19 at 1648 by NORBERT PATTON Amended: Links added.
[2019-06-12 17:00] VITALS: BP 119/53
--- NOTE | 2019-06-12 21:45 | NUR ---
HOSPITALIST PAGED RE: BREATHING TREATMENT Hospitalist paged regarding PRN breathing treatment. Patient is complaining of shortness of breath and is requesting a breathing treatment. Patients lung sounds are clear upon auscultation, spo2: 92% on 2L NC. Patient reports that at home he takes a Symbicort inhaler which helps relieve his shortness of breath. Awaiting call back.
--- NOTE | 2019-06-12 21:52 | NUR ---
HOSPITALIST RETURNED CALL RE: BREATHING TREATMENT Notified VOCATIONAL ADVISER Kashif Hathaway that patient is complaining of shortness of breath and is requesting a breathing treatment. Orders for Albuterol 2.5mg every six hours as needed received. Order read back and verified. Will carry out order as received.
[2019-06-12 22:09] VITALS: BP 121/58
[2019-06-12] MEDS: ALBUTEROL SULF 2.5 MG/0.5ML(0.5%) NEB SOLN NEB PRN (22:17)
--- NOTE | 2019-06-12 22:17 | NUR ---
RT AT BEDSIDE RT at bedside.
[2019-06-12] MEDS: ATORVASTATIN 20 MG TAB PO SCH (22:18)
[2019-06-12] MEDS: TEMAZEPAM 15 MG CAP PO PRN (23:40)
[2019-06-13] MEDS: SODIUM CHLORIDE 0.9% 1,000 ML IV SCH ×2 (00:29→05:45)
[2019-06-13 00:51] VITALS: BP 121/58
--- NOTE | 2019-06-13 01:53 | NUR ---
HOSPITALIST PAGED RE: PAIN MEDICATION Patient is complaining of pain around his chest cavity/lungs, pain scale 5/10. Patient is requesting pain medication. Awaiting call back.
[2019-06-13] MEDS ORDERED: HYDROcodone-ACET 5/325MG TAB PO PRN (02:30)
--- NOTE | 2019-06-13 04:17 | NUR ---
RT PAGED FOR PRN BREATHING TREATMENT RT paged for PRN breathing treatment.
--- NOTE | 2019-06-13 04:25 | NUR ---
RT AT BEDSIDE RT at bedside.
[2019-06-13] MEDS: ALBUTEROL SULF 2.5 MG/0.5ML(0.5%) NEB SOLN NEB PRN ×2 (04:26→10:28)
[2019-06-13 05:29] VITALS: BP 105/49
[2019-06-13] MEDS: LEVOTHYROXINE SODIUM 100 MCG TAB PO SCH (06:06)
[2019-06-13] MEDS: InsuLIN REG 1unit/0.01ml Soln (100units/ml) SC SCH ×2 (06:07→11:26)
[2019-06-13] MEDS: ACCU-CHEK COMFORT CURVE STRIP VI SCH ×2 (06:07→11:26)
--- NOTE | 2019-06-13 07:02 | NUR ---
CLOSING SHIFT NOTE Patient care endorsed to day shift RN.
--- NOTE | 2019-06-13 07:20 | NUR ---
OPENING SHIFT NOTE PT IS RESTING IN BED. RESPIRATIONS ARE EVEN AND NON-LABORED. BED IS LOCKED AND IN LOWEST POSITION. CALL LIGHT IS WITHIN REACH.
[2019-06-13 09:00] VITALS: BP 153/71
[2019-06-13] MEDS: AZITHROMYCIN 250 MG TAB PO SCH (09:23)
[2019-06-13] MEDS: cefTRIAXone 1GM/50ML D5W 50 ML IV SCH (09:23)
[2019-06-13] MEDS: AMIODARONE HCL 200 MG TAB PO SCH (09:24)
[2019-06-13] MEDS: METOPROLOL SUCCINATE XL 50 MG TAB PO SCH (09:24)
[2019-06-13] MEDS: FUROSEMIDE 20 MG TAB PO SCH (09:24)
--- NOTE | 2019-06-13 09:40 | NUR ---
ROUNDING MD Eddie SIMON AT BEDSIDE. ALL QUESTIONS AND CONCERNS ADDRESSED AT THIS TIME. NEW ORDERS RECEIVED.
[2019-06-13 12:54] VITALS: BP 120/56
--- NOTE | 2019-06-13 14:25 | NUR ---
ROUNDING MD RODRIGES AT BEDSIDE. ALL QUESTIONS AND CONCERNS ADDRESSED AT THIS TIME.
--- NOTE | 2019-06-13 16:20 | NUR ---
Discharge planning per consult, [facility] follow [facility] call, and was advised by Marianne that the 02 will be delivered by 5pm. Nurse Grecia was updated on dc plan. Addendum: 06/13/19 at 1622 by NORBERT PATTON Amended: Links added.
[2019-06-13 16:30] VITALS: BP 123/51
--- NOTE | 2019-06-13 16:46 | NUR ---
CECELIA AT BEDSIDE DROPPING OFF OXYGEN FOR HOME. ALL QUESTIONS AND CONCERNS ADDRESSED AT THIS TIME.
--- NOTE | 2019-06-13 17:09 | NUR ---
Discharge instructions given as ordered. Encourage to follow up with PMD as instructed. All questions and concerns addressed. Patient verbalized understanding. Medication reconciliation form completed and copy given to patient. IV removed with catheter intact, pressure dressing applied, . Telemetry unit returned to ICU. Patient taken to vehicle via wheelchair with all personal belongings, accompanied by staff and family member. No distress noted at time of departure.
== END 2019-06-13 17:09 | disposition home or self-care (01) | DRG 302 ==
LOC: ER 00:43 → TELE 00:44 → TELE-EAST 14:31
PROVIDERS: ADMIT Nurse Practitioner Acute Care; ATTEND Family Medicine
PROC: 0W993ZZ Drainage of Right Pleural Cavity, Percutaneous Approach (ICD-10-PCS; principal; 2019-06-11)
DX: I25.119 Atherosclerotic heart disease of native coronary artery with unspecified angina pectoris (principal); J18.9 Pneumonia, unspecified organism; I13.0 Hypertensive heart and chronic kidney disease with heart failure and stage 1 through stage 4 chronic kidney disease, or unspecified chronic kidney disease; E44.1 Mild protein-calorie malnutrition; J91.8 Pleural effusion in other conditions classified elsewhere; N18.3 Chronic kidney disease, stage 3 (moderate); E11.22 Type 2 diabetes mellitus with diabetic chronic kidney disease; J44.9 Chronic obstructive pulmonary disease, unspecified; I50.9 Heart failure, unspecified; D69.6 Thrombocytopenia, unspecified; D64.9 Anemia, unspecified; I48.91 Unspecified atrial fibrillation; E03.9 Hypothyroidism, unspecified; I25.5 Ischemic cardiomyopathy; R04.0 Epistaxis; E78.5 Hyperlipidemia, unspecified; Z95.810 Presence of automatic (implantable) cardiac defibrillator; Z95.1 Presence of aortocoronary bypass graft; Z88.1 Allergy status to other antibiotic agents; Z95.5 Presence of coronary angioplasty implant and graft; Z88.8 Allergy status to other drugs, medicaments and biological substances; Z90.49 Acquired absence of other specified parts of digestive tract; Z79.84 Long term (current) use of oral hypoglycemic drugs; Z79.899 Other long term (current) drug therapy; Z82.49 Family history of ischemic heart disease and other diseases of the circulatory system; Z83.3 Family history of diabetes mellitus; I25.2 Old myocardial infarction; Z91.041 Radiographic dye allergy status; Z88.2 Allergy status to sulfonamides; Z68.28 Body mass index [BMI] 28.0-28.9, adult
CPT/HCPCS: 10022; 32555; 36415; 36600; 71045; 71260; 74177; 76604; 76942; 80053; 82805; 82962; 83735; 83880; 83986; 84484; 85025; 85379; 85610; 85730; 87070; 87081; 87205; 89051; 93005; 93306; 93970; 94640; 96374; 96375; 99291; G0378; J0153; J0696; J1815; J3490; Q9967

== ENCOUNTER 2019-07-19 05:18 | Inpatient (IN) | payer MEDICARE, MEDICAID ==
[~2019-07-19] VITALS: Ht 177.8 cm; Wt 81.6 kg
[~2019-07-19 05:18] MED LIST changes: +ACET-1158 PO; +AMIO200T33 PO; +ATOR40TA52 PO; +BUDE2SUS3 IN; +INSUINJ18 SC; +MAGN400T5 PO; +METO-169 PO
[2019-07-19 06:48] LABS: Basophils # (auto) 0 uL; Basophils % (auto) 0.9 % (0.0-2.0); Eosinophils # (auto) 0 uL; Hemoglobin 9.9 g/dL (13.5-17.5); Lymphocytes # (auto) 0.8 uL; Monocytes # (auto) 0.3 uL; Nucleated Red Blood Cells % 0.1 %; Red Cell Distribution Width 15.6 % (11.8-14.3)
[2019-07-19 06:50] LABS: Eosinophils % (auto) 0.5 % (0.0-7.0); Hematocrit 30.3 % (41.0-53.0); Lymphocytes % (auto) 20.2 % (10.0-50.0); Mean Corpuscular Hemoglobin 27.8 pg (28.0-32.0); Mean Corpuscular Hgb Conc. 32.7 g/dL (32.0-36.0); Monocytes % (auto) 6.7 % (0.0-12.0); Neutrophils # (auto) 2.9 uL; Neutrophils % (auto) 71.7 % (37.0-80.0); Red Blood Cells 3.56 10^6/uL (4.5-5.90)
[2019-07-19 07:10] LABS: Potassium 4.7 mmol/L (3.5-5.1)
[2019-07-19 07:18] LABS: Albumin 2.6 g/dL (3.4-5.0); BUN/Creatinine Ratio 22.4; Bilirubin, Total 0.7 mg/dL (0.2-1.0); Calcium 8.4 mg/dL (8.5-10.1); Magnesium 2.6 mg/dL (1.6-2.6); Total Protein 6.9 g/dL (6.4-8.2)
[2019-07-19 07:20] LABS: Platelet Count (auto) 49 10^3/uL (140-450)
[2019-07-19] MEDS ORDERED: LACTULOSE 20Gm/30ML SOLN PO PRN (09:15)
[2019-07-19] MEDS ORDERED: DEXTROSE (50%) 50ML SYRG IV PRN (09:15)
[2019-07-19] MEDS: SODIUM CHLORIDE 0.9% 1,000 ML IV SCH ×3 (09:15→22:39)
[2019-07-19] MEDS ORDERED: traMADol HCL 50 MG TAB PO PRN (09:15)
[2019-07-19] MEDS ORDERED: MORPHINE SULF INJ 2 MG/ML SYRINGE 1ML IV PRN ×2 (09:15)
[2019-07-19] MEDS ORDERED: NITROGLYCERIN 0.4 MG SL TAB SL PRN (09:15)
[2019-07-19] MEDS ORDERED: ONDANSETRON HCL 4 MG/2 ML VIAL IV PRN (09:15)
[2019-07-19 09:30] VITALS: BP 101/57
[2019-07-19] MEDS: METOPROLOL SUCCINATE 50 MG PO SCH ×2 (10:00→22:00)
[2019-07-19] MEDS ORDERED: FUROSEMIDE 40 MG TAB PO SCH (10:00)
[2019-07-19] MEDS ORDERED: POTASSIUM CHLORIDE 8 MEQ TAB PO SCH (10:00)
[2019-07-19] MEDS ORDERED: DIGOXIN 0.125 MG TAB PO SCH (10:00)
--- NOTE | 2019-07-19 10:13 | NUR ---
Received half of report due to battery Rusty never call back. Addendum: 07/19/19 at 1019 by DIANA SILVA RN Amber
[2019-07-19 11:00] VITALS: BP 96/54
--- NOTE | 2019-07-19 11:00 | NUR ---
Telemetry admit from ER ZENY CHAND JR admitted to Telemetry unit after SBAR received. Patient oriented to DIANA SILVA, primary RN, unit, room, bed, and unit policies regarding patient care and visiting hours. Patient now on continuous telemetry monitoring, tele box # 76 and telemetry reading on arrival to unit is . Patient placed on bedside oxygen, weighed by bed scale and encouraged to call if they need something. All questions and concerns addressed, patient verbalized understanding.
[2019-07-19] MEDS: DOXYCYCLINE 100 MG TAB/CAP PO SCH ×2 (11:13→22:27)
[2019-07-19] MEDS: PANTOPRAZOLE 40 MG TAB PO SCH (11:14)
[2019-07-19] MEDS: MEXILETINE HYDROCHLORIDE 150 MG CAP PO SCH (11:15)
[2019-07-19] MEDS: AMIODARONE HCL 200 MG TAB PO SCH (11:15)
[2019-07-19] MEDS: InsuLIN REG 1unit/0.01ml Soln (100units/ml) SC SCH ×3 (11:18→22:27)
[2019-07-19] MEDS: ACCU-CHEK COMFORT CURVE STRIP VI SCH ×3 (11:19→22:27)
--- NOTE | 2019-07-19 12:00 | NUR ---
Photos taken to right arm and right shoulder prior admission.
[2019-07-19 13:00] VITALS: BP 96/56
[2019-07-19] MEDS: CLINDAMYCIN 600MG IV 50 ML IV SCH ×2 (13:44→22:26)
[2019-07-19] MEDS ORDERED: BUME1TAB3 PO (15:34)
[2019-07-19] MEDS ORDERED: SPIR25TA8 PO (15:34)
[2019-07-19 17:00] VITALS: BP 99/58
--- NOTE | 2019-07-19 17:46 | NUR ---
Received a call from Dr. Vyas stated patient needs to be NPO AMN and he will see patient tomorrow morning. Patient and family made aware. Clari (Patient 's daughter) spoke with Dr. Vyas over the phone.
--- NOTE | 2019-07-19 19:44 | NUR ---
RECEIVED PATIENT FROM DAY SHIFT RN. PATIENT RESTING IN BED. NO S/S OF DISTRESS NOTED. DENIED PAIN FOR NOW. INSTRUCTED PATIENT THE NECESSARY FOR HIM TO CONTINUE IV FLUID. PATIENT VERBALIZED UNDERSTANDING AND CONNECTED PATIENT BACK TO IV NS 75ML/HR. PATIENT TOLERATED WELL. DRESSING ON RFA AND RT BACK SHOULDER C/D/I. POC INSTRUCTED AND ENCOURAGED PATIENT TO CALL FOR ARC CUTTER IF NEEDED. BED IN LOWEST POSITION WITH SIDE RAILS UP X 2. CALL MULLER WITHIN REACH. ALARM ON. CONTINUE TO MONITOR FOR CHANGES Q1H AND PRN. .
[2019-07-19 22:09] VITALS: BP 104/55
[2019-07-19] MEDS: ATORVASTATIN 20 MG TAB PO SCH (22:26)
--- NOTE | 2019-07-19 22:35 | NUR ---
SCHEDULE ORAL MEDICATION GIVEN ORDERED. PATIENT SWALLOWED WELL. NO S/S OF ASPIRATION NOTED. ACCU-CHECK, BS 162. INSULIN GIVEN ORDERED. CONTINUE TO MONITOR.
--- NOTE | 2019-07-20 00:20 | NUR ---
FOOD AND WATER REMOVED FROM BEDSIDE. PATIENT UNDERSTOOD NPO FROM NOW ON. CONTINUE TO MONITOR.
--- NOTE | 2019-07-20 03:44 | NUR ---
PATIENT SLEEPING. NO S/S OF DISTRESS NOTED. CONTINUE CARE.
[2019-07-20 05:09] VITALS: BP 100/53
[2019-07-20] MEDS: ACETAMINOPHEN 500 MG TAB PO PRN (05:30)
[2019-07-20] MEDS: CLINDAMYCIN 600MG IV 50 ML IV SCH (06:27)
[2019-07-20] MEDS: InsuLIN REG 1unit/0.01ml Soln (100units/ml) SC SCH ×4 (06:33→22:00)
[2019-07-20] MEDS: ACCU-CHEK COMFORT CURVE STRIP VI SCH ×4 (06:33→22:23)
[2019-07-20] MEDS: LEVOTHYROXINE SODIUM 100 MCG TAB PO SCH (06:33)
--- NOTE | 2019-07-20 06:34 | NUR ---
SCHEDULE ORAL MEDICATION GIVEN ORDERED. PATIENT SWALLOWED WELL. NO S/S OF ASPIRATION NOTED. ACCU-CHECK, BS 97. NO COVERAGE. CONTINUE TO MONITOR.
--- NOTE | 2019-07-20 08:34 | NUR ---
Opening Shift Note Assumed care of patient, awake and alert. No S/S of distress/SOB or pain. Instructed on POC and to call for assist PRN, will continue to monitor for changes Q1hr and PRN.
[2019-07-20 09:00] VITALS: BP 95/47
[2019-07-20] MEDS: DOXYCYCLINE 100 MG TAB/CAP PO SCH (10:00)
[2019-07-20] MEDS: PANTOPRAZOLE 40 MG TAB PO SCH ×2 (10:00→16:16)
[2019-07-20] MEDS: METOPROLOL SUCCINATE 50 MG PO SCH ×2 (10:00→22:27)
[2019-07-20] MEDS: MEXILETINE HYDROCHLORIDE 150 MG CAP PO SCH ×2 (10:00→16:16)
[2019-07-20] MEDS: AMIODARONE HCL 200 MG TAB PO SCH ×2 (10:00→16:16)
[2019-07-20 11:57] LABS: Urine WBC None Seen /hpf (0 - 3)
[2019-07-20 12:05] LABS: Urine Bacteria NONE SEEN /hpf (None Seen); Urine Blood Negative /uL (Negative); Urine Specific Gravity 1.018 (1.001-1.035)
[2019-07-20 13:00] VITALS: BP 101/57
[2019-07-20 13:30] LABS: INR 1.18 (0.9-1.15); Partial Thromboplastin Time 33.8 sec (23.64-32.05)
--- NOTE | 2019-07-20 13:58 | NUR ---
Patient left unit for thoracentesis.
--- NOTE | 2019-07-20 14:38 | NUR ---
THORACENTESIS COMPLETED BY DR EAGLE IN ULTRASOUND. VSS 101/55-70-16-98%. PT TOLERATED WELL. POST CXR DONE. 1250ML BURGUNDY FLUID REMOVED AND SENT TO LAB
--- NOTE | 2019-07-20 15:05 | NUR ---
Received a call from Dr. Kingston stated patient can eat now, noted and carried it out.
--- NOTE | 2019-07-20 15:51 | NUR ---
Per pharmacist regarding patient requests AM meds to be given now, pharmacist said ok to give alll of them.
[2019-07-20 17:00] VITALS: BP 104/60
[2019-07-20] MEDS: FUROSEMIDE 40 MG/4 ML VIAL IV SCH (17:56)
--- NOTE | 2019-07-20 19:06 | NUR ---
Dr. Vyas called stated patient does not need any intervention, will call patient's daughter, phone number provide : Clari# [phone].
--- NOTE | 2019-07-20 19:50 | NUR ---
RECEIVED PATIENT FROM DAY SHIFT RN. PATIENT RESTING IN BED AND TALKING ON THE PHONE. NO S/S OF DISTRESS NOTED. DENIED PAIN FOR NOW. DRESSING ON RFA AND RT BACK SHOULDER C/D/I. BOTH LEGS ELEVATED WITH PILLOW. POC INSTRUCTED AND ENCOURAGED PATIENT TO CALL FOR MEDIA RECONCILIATION SPECIALIST IF NEEDED. BED IN LOWEST POSITION WITH SIDE RAILS UP X 2. CALL MULLER WITHIN REACH. ALARM ON. SITTER IN THE ROOM FOR THE B BED. WILL KEEP SAFETY FOR PATIENT TOO. CONTINUE TO MONITOR FOR CHANGES Q1H AND PRN. .
[2019-07-20 20:28] VITALS: BP 103/54
[2019-07-20] MEDS: ATORVASTATIN 20 MG TAB PO SCH (22:22)
--- NOTE | 2019-07-20 22:30 | NUR ---
SCHEDULE ORAL MEDICATION GIVEN ORDERED. PATIENT SWALLOWED WELL. NO S/S OF ASPIRATION NOTED. ACCU-CHECK, BS 112. NO COVERAGE. CONTINUE TO MONITOR.
[2019-07-21] MEDS: ALPRAZolam 0.5 MG TAB PO PRN (00:18)
--- NOTE | 2019-07-21 00:18 | NUR ---
REPORT GIVEN TO VIDYA NI.
--- NOTE | 2019-07-21 00:20 | NUR ---
Received report from Bettie NI and assumed care of patient at this time.
--- NOTE | 2019-07-21 01:00 | NUR ---
Pt resting in bed with eyes closed and resp rate is even and unlabored. No s/s of any distress noted at this time. Bed is low, wheels are locked , and call light is with in reach.
[2019-07-21 05:14] VITALS: BP 108/54
[2019-07-21 05:36] LABS: Basophils # (auto) 0 uL; Basophils % (auto) 0.9 % (0.0-2.0); Eosinophils # (auto) 0 uL; Hemoglobin 9.4 g/dL (13.5-17.5); Lymphocytes # (auto) 0.9 uL; Monocytes # (auto) 0.2 uL
[2019-07-21 05:39] LABS: Hematocrit 28.7 % (41.0-53.0); Lymphocytes % (auto) 30.7 % (10.0-50.0); Mean Corpuscular Hemoglobin 27.8 pg (28.0-32.0); Mean Corpuscular Hgb Conc. 32.8 g/dL (32.0-36.0); Mean Corpuscular Volume 84.8 fL (80.0-100.0); Monocytes % (auto) 6.8 % (0.0-12.0); Neutrophils # (auto) 1.7 uL; Neutrophils % (auto) 60.6 % (37.0-80.0); Nucleated Red Blood Cells % 0.2 %; Platelet Count (auto) 47 10^3/uL (140-450); Red Blood Cells 3.39 10^6/uL (4.5-5.90); Red Cell Distribution Width 15.5 % (11.8-14.3); White Blood Cell 2.8 10^3/uL (4.4-10.8)
[2019-07-21 05:47] LABS: Potassium 4.4 mmol/L (3.5-5.1)
[2019-07-21 05:51] LABS: Albumin 2.4 g/dL (3.4-5.0); BUN/Creatinine Ratio 18.9; Calcium 7.7 mg/dL (8.5-10.1); Magnesium 2.3 mg/dL (1.6-2.6)
[2019-07-21 05:53] LABS: Bilirubin, Total 0.8 mg/dL (0.2-1.0); Total Protein 6.2 g/dL (6.4-8.2)
[2019-07-21] MEDS: FUROSEMIDE 40 MG/4 ML VIAL IV SCH ×2 (05:57→18:29)
[2019-07-21] MEDS: LEVOTHYROXINE SODIUM 100 MCG TAB PO SCH (05:57)
[2019-07-21] MEDS: ACCU-CHEK COMFORT CURVE STRIP VI SCH ×4 (06:03→22:06)
[2019-07-21] MEDS: InsuLIN REG 1unit/0.01ml Soln (100units/ml) SC SCH ×4 (06:04→22:06)
--- NOTE | 2019-07-21 08:00 | NUR ---
Morning note Patient resting in bed with even and unlabored respirations, no distress noted. Instructed patient on POC, fall precautions and to call for assistance as needed. Patient verbalized understanding. Fall precautions in place with bed in lowest position with x2 side rails up and call light within reach. Sitter at bedside for safety. Will continue to monitor q1hr & PRN.
[2019-07-21 09:00] VITALS: BP 106/48
[2019-07-21] MEDS: METOPROLOL SUCCINATE 50 MG PO SCH (10:00)
--- NOTE | 2019-07-21 10:05 | NUR ---
Patient ambulated with PT FWW used as assistive device. BRANDON Matute, at patient's side.
[2019-07-21] MEDS: AMIODARONE HCL 200 MG TAB PO SCH (10:33)
[2019-07-21] MEDS: MEXILETINE HYDROCHLORIDE 150 MG CAP PO SCH (10:33)
[2019-07-21] MEDS: PANTOPRAZOLE 40 MG TAB PO SCH (10:33)
[2019-07-21 13:00] VITALS: BP 112/57
--- NOTE | 2019-07-21 13:02 | NUR ---
Discussed POC with Discussed POC with Dr. Mendiola. Orders received and read back to verify.
[2019-07-21] MEDS ORDERED: IPRATROPIUM BROM 0.5 MG/2.5ML INH SOL NEB PRN (13:15)
[2019-07-21] MEDS ORDERED: ALBUTEROL SULF 2.5 MG/0.5ML(0.5%) NEB SOLN NEB PRN (13:15)
--- NOTE | 2019-07-21 14:56 | NUR ---
POC discussed with Dr. Liriano via telephone No cardiac intervention per Dr. Liriano. Patient to ambulate and sit in chair throughout the day per MD. Dr. Liriano will update patient's daughter, Clari.
--- NOTE | 2019-07-21 16:40 | NUR ---
Patient sitting in chair at bedside. Patient transferred to chair with minimal assistance. Call light within reach. Will continue to monitor.
[2019-07-21 16:45] VITALS: BP 99/57
--- NOTE | 2019-07-21 18:45 | NUR ---
Closing note Patient sitting in bed with even and unlabored respirations, no distress noted. Fall precautions in place with call light within reach. Visitors at bedside.
--- NOTE | 2019-07-21 19:04 | NUR ---
Care endorsed to RAINE Alexandre.
--- NOTE | 2019-07-21 19:36 | NUR ---
RECEIVED PATIENT FROM DAY SHIFT RN. PATIENT RESTING IN BED. NO S/S OF DISTRESS NOTED. DENIED PAIN FOR NOW. DRESSING ON RFA AND RT BACK SHOULDER C/D/I. BOTH LEGS ELEVATED WITH PILLOW. POC INSTRUCTED AND ENCOURAGED PATIENT TO CALL FOR MEDICAL IMAGING SPECIALIST IF NEEDED. BED IN LOWEST POSITION WITH SIDE RAILS UP X 2. CALL MULLER WITHIN REACH. ALARM ON. SITTER IN THE ROOM FOR BED B. WILL KEEP SAFETY FOR PATIENT TOO. CONTINUE TO MONITOR FOR CHANGES Q1H AND PRN. .
[2019-07-21 20:08] VITALS: BP 99/57
[2019-07-21 21:00] VITALS: BP 101/57
[2019-07-21] MEDS: ATORVASTATIN 20 MG TAB PO SCH (22:06)
--- NOTE | 2019-07-21 22:07 | NUR ---
SCHEDULE ORAL MEDICATION GIVEN ORDERED. PATIENT SWALLOWED WELL. NO S/S OF ASPIRATION NOTED. ACCU-CHECK, BS 147. INSULIN GIVEN ORDERED. CONTINUE TO MONITOR.
--- NOTE | 2019-07-21 23:00 | NUR ---
RT PAGED FOR BREATHING TREATMENT.
[2019-07-22] MEDS: ALPRAZolam 0.5 MG TAB PO PRN ×2 (00:12→11:46)
--- NOTE | 2019-07-22 01:51 | NUR ---
PATIENT SLEEPING. NO S/S OF DISTRESS NOTED. CONTINUE CARE.
[2019-07-22] MEDS: ACETAMINOPHEN 500 MG TAB PO PRN (04:14)
--- NOTE | 2019-07-22 04:14 | NUR ---
PATIENT C/O PAIN @ 01/19, MEDICATED PATIENT ORDERED. CONTINUE TO MONITOR.
[2019-07-22 05:00] VITALS: BP 105/52
[2019-07-22] MEDS: FUROSEMIDE 40 MG/4 ML VIAL IV SCH (06:11)
[2019-07-22] MEDS: LEVOTHYROXINE SODIUM 100 MCG TAB PO SCH (06:12)
[2019-07-22] MEDS: ACCU-CHEK COMFORT CURVE STRIP VI SCH ×2 (06:13→11:48)
[2019-07-22] MEDS: InsuLIN REG 1unit/0.01ml Soln (100units/ml) SC SCH ×2 (06:13→11:30)
--- NOTE | 2019-07-22 06:13 | NUR ---
SCHEDULE ORAL MEDICATION GIVEN ORDERED. PATIENT SWALLOWED WELL. NO S/S OF ASPIRATION NOTED. ACCU-CHECK, BS 84. NO COVERAGE. CONTINUE TO MONITOR.
--- NOTE | 2019-07-22 06:48 | NUR ---
Respiratory note: Assessed pt for prn medneb tx. HR 70, RR 14, POX 97% on 3L NC. Breath sounds clear throughout. Pt denies any SOB. No s/s of respiratory distress noted. Medneb tx not indicated at this time. Advised pt to call for RT if feeling SOB or requesting breathing tx.
[2019-07-22 08:00] VITALS: BP 105/52
[2019-07-22] MEDS ORDERED: METOPROLOL SUCCINATE XL 50 MG TAB PO SCH (10:00)
[2019-07-22] MEDS: AMIODARONE HCL 200 MG TAB PO SCH (10:00)
[2019-07-22] MEDS: PANTOPRAZOLE 40 MG TAB PO SCH (11:46)
--- NOTE | 2019-07-22 11:56 | NUR ---
Nutrition Assessment Notes please see attached link for complete assessment Est. Needs BW 81 [id number] kcal (23-25 kcal/kgBW), 81-89 gms pro (1.0-1.1 gms/kgBW). Will continue to monitor pertinent labs and reassess nutrient need prn Addendum: 07/22/19 at [address] Amended: Links added.
--- NOTE | 2019-07-22 17:00 | NUR ---
Discharge instructions given as ordered. Encourage to follow up with PMD as instructed. All questions and concerns addressed. Patient verbalized understanding. Medication reconciliation form completed and copy given to patient. Home medications held in Pharmacy returned to patient. IV removed with catheter intact, pressure dressing applied. Telemetry unit returned to ICU. Patient taken to vehicle via wheelchair with all personal belongings, accompanied by staff and family member. No distress noted at time of departure.
[2019-07-23 10:04] LABS: Folate (Folic Acid) 3.2 ng/mL (5.38-24)
[2019-07-28] MEDS ORDERED: FER300LQ PO (14:37)
[2019-07-28] MEDS ORDERED: LEVO100T8 PO (14:37)
[2019-07-28] MEDS ORDERED: MAGN400T5 PO (14:37)
[2019-07-28] MEDS ORDERED: METO25TA62 PO (14:37)
[2019-07-28] MEDS ORDERED: GLIM4TAB42 PO (14:37)
[2019-07-28] MEDS ORDERED: CYA100I PO (14:37)
[2019-07-28] MEDS ORDERED: NITR0.4S29 SL (14:37)
[2019-07-28] MEDS ORDERED: [UNRECOGNIZED DRUG - CODE] PO (14:37)
== END 2019-07-22 17:00 | disposition home or self-care (01) | DRG 291 ==
LOC: EDBD 05:18 → ER 05:18 → TELE 05:19 → TELE-WESTW 11:00
PROVIDERS: ADMIT Internal Medicine; ATTEND Internal Medicine
PROC: 0W993ZZ Drainage of Right Pleural Cavity, Percutaneous Approach (ICD-10-PCS; principal; 2019-07-20)
DX: I13.0 Hypertensive heart and chronic kidney disease with heart failure and stage 1 through stage 4 chronic kidney disease, or unspecified chronic kidney disease (principal); I50.23 Acute on chronic systolic (congestive) heart failure; N17.9 Acute kidney failure, unspecified; E87.1 Hypo-osmolality and hyponatremia; I47.2 Ventricular tachycardia; J96.10 Chronic respiratory failure, unspecified whether with hypoxia or hypercapnia; S09.90XA Unspecified injury of head, initial encounter; S40.819A Abrasion of unspecified upper arm, initial encounter; N18.3 Chronic kidney disease, stage 3 (moderate); D64.9 Anemia, unspecified; M53.3 Sacrococcygeal disorders, not elsewhere classified; Z99.81 Dependence on supplemental oxygen; S09.8XXA Other specified injuries of head, initial encounter; Z91.81 History of falling; I25.5 Ischemic cardiomyopathy; I25.2 Old myocardial infarction; D69.6 Thrombocytopenia, unspecified; I48.0 Paroxysmal atrial fibrillation; Z80.0 Family history of malignant neoplasm of digestive organs; W18.39XA Other fall on same level, initial encounter; Y93.89 Activity, other specified; Y92.89 Other specified places as the place of occurrence of the external cause; Y99.8 Other external cause status; Z95.1 Presence of aortocoronary bypass graft; Z90.49 Acquired absence of other specified parts of digestive tract; Z87.891 Personal history of nicotine dependence; Z79.4 Long term (current) use of insulin; Z79.899 Other long term (current) drug therapy; Z89.429 Acquired absence of other toe(s), unspecified side; Z83.3 Family history of diabetes mellitus; Z88.3 Allergy status to other anti-infective agents; Z88.2 Allergy status to sulfonamides; Z88.8 Allergy status to other drugs, medicaments and biological substances
CPT/HCPCS: 10022; 32555; 36415; 70450; 71045; 72125; 72192; 76604; 76942; 80053; 80162; 81001; 82550; 82607; 82746; 82962; 83036; 83735; 83880; 83986; 84484; 85025; 85610; 85652; 85730; 86141; 87070; 87081; 87205; 89051; 93005; 93306; 94640; 97116; 97530; G0378; J1815; J3490

== ENCOUNTER 2020-01-15 06:32 | Inpatient (IN) | payer MEDICARE, MEDICAID ==
[~2020-01-15] VITALS: Ht 177.8 cm; Wt 80.3 kg
[~2020-01-15 06:32] MED LIST changes: -ALPR0.5T; +ALPR0.5T PO; -AMIODORONE PO; -AZIT250T8 PO; -B12 PO; +BUME1TAB3 PO; +CYA100I PO; -DIGO0.1262 PO; +FER300LQ PO; -FURO1TAB31 PO; +GLIM4TAB42 PO; +LEVO100T8 PO; -LEVO75TA6 PO; -MAG PO; +MAGN400T40 PO; -MAGN400T5 PO; -METO-169 PO; -METO25TA62 PO; +METO25TA93 PO; -MEX150C PO; +NITR0.4S29 SL; -POTA8TAB2 PO; +SPIR25TA8 PO; -VIT C PO; +[UNRECOGNIZED DRUG - CODE] PO; -[UNRECOGNIZED DRUG - CODE] PO
[2020-01-15 07:19] LABS: Basophils % (auto) 1.3 % (0.0-2.0); Eosinophils % (auto) 1.5 % (0.0-7.0)
[2020-01-15 07:21] LABS: Basophils # (auto) 0 10 ^3/uL (0-0.2); Eosinophils # (auto) 0 10 ^3/uL (0-0.8); Hematocrit 32.3 % (41.0-53.0); Hemoglobin 9.8 g/dL (13.5-17.5); Lymphocytes # (auto) 0.4 10 ^3/uL (0.4-5.4); Lymphocytes % (auto) 14.2 % (10.0-50.0); Mean Corpuscular Hemoglobin 24.3 pg (28.0-32.0); Mean Corpuscular Hgb Conc. 30.5 g/dL (32.0-36.0); Mean Corpuscular Volume 79.9 fL (80.0-100.0); Monocytes # (auto) 0.2 10 ^3/uL (0-1.3); Monocytes % (auto) 7.6 % (0.0-12.0); Neutrophils # (auto) 2.1 10 ^3/uL (1.6-8.6); Neutrophils % (auto) 75.4 % (37.0-80.0); Nucleated Red Blood Cells % 0.3 %; Platelet Count (auto) 65 10^3/uL (140-450); Red Blood Cells 4.04 10^6/uL (4.5-5.90); Red Cell Distribution Width 19.6 % (11.8-14.3); White Blood Cell 2.8 10^3/uL (4.4-10.8)
[2020-01-15 07:30] LABS: Albumin 2.3 g/dL (3.4-5.0); Calcium 7.3 mg/dL (8.5-10.1); Magnesium 2.5 mg/dL (1.6-2.6); Potassium 4.2 mmol/L (3.5-5.1)
[2020-01-15 07:35] LABS: Bilirubin, Total 0.6 mg/dL (0.2-1.0); Total Protein 6.4 g/dL (6.4-8.2)
[2020-01-15 07:37] LABS: INR 1.3 (0.9-1.15)
[2020-01-15 07:43] LABS: Urine Bacteria NONE SEEN /hpf (None Seen); Urine Blood TRACE /uL (Negative); Urine Hyaline Cast FEW /lpf (0 - 2); Urine Mucus FEW (None Seen); Urine Specific Gravity 1.032 (1.001-1.035); Urine WBC 1 /hpf (0 - 3)
[2020-01-15] MEDS ORDERED: NITROGLYCERIN 0.4 MG SL TAB SL PRN (09:30)
[2020-01-15] MEDS ORDERED: DOXYCYCLINE 100MG/250ML 250 ML IV ONE (09:30)
[2020-01-15] MEDS ORDERED: DEXTROSE (50%) 50ML SYRG IV PRN (09:30)
[2020-01-15] MEDS ORDERED: SODIUM CHLORIDE 0.9% 1,000 ML IV ONE (09:30)
[2020-01-15] MEDS ORDERED: MORPHINE SULF INJ 2 MG/ML SYRINGE 1ML IV PRN (09:30)
[2020-01-15 10:25] LABS: Ferritin 61.1 ng/mL (10-322)
[2020-01-15 10:26] LABS: Folate (Folic Acid) 10.76 ng/mL (5.38-24)
[2020-01-15] MEDS: SPIRONOLACTONE 25 MG TAB PO SCH ×3 (10:28→22:21)
[2020-01-15] MEDS: AMIODARONE HCL 200 MG TAB PO SCH ×2 (10:30→10:35)
[2020-01-15] MEDS: ACCU-CHEK COMFORT CURVE STRIP VI SCH ×3 (12:29→22:08)
[2020-01-15] MEDS: InsuLIN REG 1unit/0.01ml Soln (100units/ml) SC SCH ×3 (12:38→22:09)
[2020-01-15 16:45] VITALS: BP 115/64
[2020-01-15 17:00] VITALS: BP 115/64
[2020-01-15 20:00] VITALS: BP 103/46
[2020-01-15 22:00] VITALS: BP 103/46
[2020-01-16] MEDS ORDERED: TEMAZEPAM 15 MG CAP PO ONE (02:30)
[2020-01-16] MEDS ORDERED: EMPA1TAB PO (03:43)
[2020-01-16 05:00] VITALS: BP 101/45
[2020-01-16 06:42] LABS: Basophils # (auto) 0 10 ^3/uL (0-0.2); Eosinophils # (auto) 0 10 ^3/uL (0-0.8); Eosinophils % (auto) 1.1 % (0.0-7.0); Hemoglobin 10.3 g/dL (13.5-17.5); Lymphocytes # (auto) 0.6 10 ^3/uL (0.4-5.4); Mean Corpuscular Volume 79.6 fL (80.0-100.0); Monocytes # (auto) 0.2 10 ^3/uL (0-1.3)
[2020-01-16] MEDS: ACCU-CHEK COMFORT CURVE STRIP VI SCH ×4 (06:43→21:27)
[2020-01-16] MEDS: LEVOTHYROXINE SODIUM 100 MCG TAB PO SCH (06:44)
[2020-01-16] MEDS: InsuLIN REG 1unit/0.01ml Soln (100units/ml) SC SCH ×4 (06:44→21:29)
[2020-01-16 06:46] LABS: Basophils % (auto) 0.9 % (0.0-2.0); Hematocrit 33.8 % (41.0-53.0); Lymphocytes % (auto) 16.2 % (10.0-50.0); Mean Corpuscular Hemoglobin 24.2 pg (28.0-32.0); Mean Corpuscular Hgb Conc. 30.4 g/dL (32.0-36.0); Monocytes % (auto) 5.9 % (0.0-12.0); Neutrophils % (auto) 75.9 % (37.0-80.0); Platelet Count (auto) 59 10^3/uL (140-450); Red Blood Cells 4.25 10^6/uL (4.5-5.90); Red Cell Distribution Width 19.5 % (11.8-14.3); White Blood Cell 3.9 10^3/uL (4.4-10.8)
[2020-01-16 06:56] LABS: Albumin 2.4 g/dL (3.4-5.0); Calcium 8.2 mg/dL (8.5-10.1); Potassium 4.8 mmol/L (3.5-5.1)
[2020-01-16 06:58] LABS: BUN/Creatinine Ratio 19.7; Bilirubin, Total 0.8 mg/dL (0.2-1.0); Total Protein 6.6 g/dL (6.4-8.2)
[2020-01-16 09:00] VITALS: BP 102/52
[2020-01-16] MEDS: SPIRONOLACTONE 25 MG TAB PO SCH ×2 (10:26→21:32)
[2020-01-16] MEDS: AMIODARONE HCL 200 MG TAB PO SCH (10:26)
[2020-01-16 12:56] VITALS: BP 106/56
[2020-01-16] MEDS ORDERED: AMIO100T3 PO (12:59)
[2020-01-16] MEDS ORDERED: OMEG100078 PO (13:01)
[2020-01-16] MEDS ORDERED: COEN100C37 PO (13:02)
[2020-01-16] MEDS ORDERED: GLIM2TAB33 PO (13:05)
[2020-01-16] MEDS ORDERED: ALBUAER3 IN (13:13)
[2020-01-16] MEDS ORDERED: BUDE1AER4 IN (13:14)
[2020-01-16] MEDS ORDERED: INSU100I51 SC (13:18)
[2020-01-16 17:00] VITALS: BP 107/54
[2020-01-16] MEDS: Glucerna Carbsteady SHAKE Vanilla 8oz PO SCH (17:37)
[2020-01-16] MEDS ORDERED: LORazepam 2MG/ML-1ML VIAL IV PRN (19:15)
[2020-01-16 22:25] VITALS: BP 122/57
[2020-01-16] MEDS: ALPRAZolam 0.5 MG TAB PO PRN (23:06)
[2020-01-17 05:30] VITALS: BP 156/65
[2020-01-17] MEDS: ACCU-CHEK COMFORT CURVE STRIP VI SCH ×4 (06:18→22:15)
[2020-01-17] MEDS: InsuLIN REG 1unit/0.01ml Soln (100units/ml) SC SCH ×4 (06:18→22:26)
[2020-01-17] MEDS: LEVOTHYROXINE SODIUM 100 MCG TAB PO SCH (06:18)
[2020-01-17 07:10] LABS: Basophils # (auto) 0 10 ^3/uL (0-0.2); Basophils % (auto) 0.7 % (0.0-2.0); Eosinophils # (auto) 0.1 10 ^3/uL (0-0.8); Eosinophils % (auto) 1.1 % (0.0-7.0); Hematocrit 34.9 % (41.0-53.0); Hemoglobin 10.7 g/dL (13.5-17.5); Lymphocytes # (auto) 0.7 10 ^3/uL (0.4-5.4); Lymphocytes % (auto) 15.7 % (10.0-50.0); Mean Corpuscular Hemoglobin 24.4 pg (28.0-32.0); Mean Corpuscular Hgb Conc. 30.5 g/dL (32.0-36.0); Mean Corpuscular Volume 79.8 fL (80.0-100.0); Monocytes # (auto) 0.3 10 ^3/uL (0-1.3); Monocytes % (auto) 5.7 % (0.0-12.0); Neutrophils # (auto) 3.4 10 ^3/uL (1.6-8.6); Neutrophils % (auto) 76.8 % (37.0-80.0); Nucleated Red Blood Cells % 0.1 %; Platelet Count (auto) 65 10^3/uL (140-450); Red Blood Cells 4.37 10^6/uL (4.5-5.90); Red Cell Distribution Width 19.3 % (11.8-14.3); White Blood Cell 4.5 10^3/uL (4.4-10.8)
[2020-01-17 07:28] LABS: BUN/Creatinine Ratio 24.8; Potassium 4.9 mmol/L (3.5-5.1)
[2020-01-17 07:29] LABS: Calcium 8.3 mg/dL (8.5-10.1)
[2020-01-17] MEDS: Glucerna Carbsteady SHAKE Vanilla 8oz PO SCH ×3 (08:00→18:44)
[2020-01-17 09:00] VITALS: BP 110/60
[2020-01-17] MEDS ORDERED: PHYTONADIONE (VIT K)10 MG/ML 1ML VIAL SUBCUT ONE (10:30)
[2020-01-17] MEDS: AMIODARONE HCL 200 MG TAB PO SCH (10:52)
[2020-01-17] MEDS: SPIRONOLACTONE 25 MG TAB PO SCH ×2 (10:52→22:18)
[2020-01-17] MEDS ORDERED: PHYTONADIONE(VitK) ORAL Susp 10mg/10ml(1mg/ml) PO ONE (11:30)
[2020-01-17 13:00] VITALS: BP 118/61
[2020-01-17 17:00] VITALS: BP 114/62
[2020-01-17] MEDS ORDERED: LACTULOSE 20Gm/30ML SOLN PO PRN (20:15)
[2020-01-17] MEDS: HYDROcodone-ACET 7.5/325MG TAB PO PRN (20:29)
[2020-01-17 22:00] VITALS: BP 115/62
[2020-01-18] MEDS: ALPRAZolam 0.5 MG TAB PO PRN ×2 (01:20→23:24)
[2020-01-18 05:00] VITALS: BP 112/63
[2020-01-18 06:00] LABS: Basophils # (auto) 0 10 ^3/uL (0-0.2); Basophils % (auto) 0.9 % (0.0-2.0); Hemoglobin 10.9 g/dL (13.5-17.5); Lymphocytes # (auto) 0.7 10 ^3/uL (0.4-5.4); Mean Corpuscular Volume 80.5 fL (80.0-100.0); Monocytes # (auto) 0.3 10 ^3/uL (0-1.3)
[2020-01-18 06:02] LABS: Eosinophils # (auto) 0 10 ^3/uL (0-0.8); Eosinophils % (auto) 0.9 % (0.0-7.0); Hematocrit 36.7 % (41.0-53.0); Lymphocytes % (auto) 13.8 % (10.0-50.0); Mean Corpuscular Hgb Conc. 29.8 g/dL (32.0-36.0); Monocytes % (auto) 6.1 % (0.0-12.0); Neutrophils # (auto) 3.7 10 ^3/uL (1.6-8.6); Neutrophils % (auto) 78.3 % (37.0-80.0); Nucleated Red Blood Cells % 0.1 %; Platelet Count (auto) 61 10^3/uL (140-450); Red Blood Cells 4.56 10^6/uL (4.5-5.90); Red Cell Distribution Width 19.2 % (11.8-14.3); White Blood Cell 4.8 10^3/uL (4.4-10.8)
[2020-01-18 06:15] LABS: INR 1.16 (0.9-1.15)
[2020-01-18 06:17] LABS: Calcium 8.3 mg/dL (8.5-10.1); Potassium 5.2 mmol/L (3.5-5.1)
[2020-01-18] MEDS: ACCU-CHEK COMFORT CURVE STRIP VI SCH ×4 (06:31→22:31)
[2020-01-18] MEDS: LEVOTHYROXINE SODIUM 100 MCG TAB PO SCH (06:31)
[2020-01-18] MEDS: InsuLIN REG 1unit/0.01ml Soln (100units/ml) SC SCH ×4 (06:32→22:39)
[2020-01-18] MEDS: Glucerna Carbsteady SHAKE Vanilla 8oz PO SCH ×3 (08:16→17:37)
[2020-01-18 09:00] VITALS: BP 110/64
[2020-01-18] MEDS: SPIRONOLACTONE 25 MG TAB PO SCH (10:05)
[2020-01-18] MEDS: AMIODARONE HCL 200 MG TAB PO SCH (10:06)
[2020-01-18] MEDS ORDERED: FUROSEMIDE 40 MG/4 ML VIAL IV ONE (12:45)
[2020-01-18 13:00] VITALS: BP 119/64
[2020-01-18] MEDS ORDERED: LIDOCAINE 2%HCL (LOCAL ANESTH.) INJ 20ML MDV ONE (13:13)
[2020-01-18 17:00] VITALS: BP 116/62
[2020-01-18] MEDS: HYDROcodone-ACET 7.5/325MG TAB PO PRN ×2 (17:13→23:25)
[2020-01-18 22:00] VITALS: BP 104/60
[2020-01-19 05:00] VITALS: BP 114/60
[2020-01-19 05:37] LABS: Calcium 8.6 mg/dL (8.5-10.1)
[2020-01-19 05:54] LABS: Potassium 5.7 mmol/L (3.5-5.1)
[2020-01-19] MEDS ORDERED: DEXTROSE (50%) 50ML SYRG IV ONE (07:00)
[2020-01-19] MEDS ORDERED: SODIUM ZIRCONIUM CYCL 10 GM PAK PO ONE (07:00)
[2020-01-19] MEDS ORDERED: FUROSEMIDE 20 MG TAB PO ONE (07:00)
[2020-01-19] MEDS ORDERED: InsuLIN REG 1unit/0.01ml Soln (100units/ml) IV ONE (07:00)
[2020-01-19] MEDS: InsuLIN REG 1unit/0.01ml Soln (100units/ml) SC SCH ×4 (07:27→22:20)
[2020-01-19] MEDS: LEVOTHYROXINE SODIUM 100 MCG TAB PO SCH (07:27)
[2020-01-19] MEDS: ACCU-CHEK COMFORT CURVE STRIP VI SCH ×4 (07:27→22:20)
[2020-01-19 09:28] VITALS: BP 122/69
[2020-01-19] MEDS ORDERED: FUROSEMIDE 100 MG/10ML VIAL IV SCH (10:00)
[2020-01-19] MEDS: Glucerna Carbsteady SHAKE Vanilla 8oz PO SCH ×3 (10:23→18:10)
[2020-01-19] MEDS: AMIODARONE HCL 200 MG TAB PO SCH (10:32)
[2020-01-19 13:00] VITALS: BP 110/59
[2020-01-19] MEDS ORDERED: ISOSORBIDE MONONITRATE ER 60 MG TAB PO ONE (13:00)
[2020-01-19] MEDS ORDERED: GLIMEPIRIDE 2 MG TAB PO ONE (13:15)
[2020-01-19] MEDS: hydrALAZINE HCL 25 MG TAB PO SCH ×2 (14:00→22:00)
[2020-01-19 17:20] VITALS: BP 104/56
[2020-01-19] MEDS: FUROSEMIDE 100 MG/10ML VIAL IV SCH (18:09)
[2020-01-19 22:00] VITALS: BP 107/55
[2020-01-19] MEDS: ALPRAZolam 0.5 MG TAB PO PRN (22:30)
[2020-01-20] MEDS: HYDROcodone-ACET 7.5/325MG TAB PO PRN ×2 (00:48→08:15)
[2020-01-20 05:00] VITALS: BP 94/57
[2020-01-20 05:57] LABS: Calcium 8.4 mg/dL (8.5-10.1); Potassium 4.8 mmol/L (3.5-5.1)
[2020-01-20 05:59] LABS: BUN/Creatinine Ratio 38.7
[2020-01-20] MEDS: FUROSEMIDE 100 MG/10ML VIAL IV SCH ×2 (06:30→18:22)
[2020-01-20] MEDS: hydrALAZINE HCL 25 MG TAB PO SCH ×3 (06:30→22:00)
[2020-01-20] MEDS: GLIMEPIRIDE 2 MG TAB PO SCH (06:38)
[2020-01-20] MEDS: LEVOTHYROXINE SODIUM 100 MCG TAB PO SCH (06:38)
[2020-01-20] MEDS: ACCU-CHEK COMFORT CURVE STRIP VI SCH ×4 (06:39→21:59)
[2020-01-20] MEDS: InsuLIN REG 1unit/0.01ml Soln (100units/ml) SC SCH ×4 (06:39→21:59)
[2020-01-20 09:00] VITALS: BP 124/64
[2020-01-20] MEDS: Glucerna Carbsteady SHAKE Vanilla 8oz PO SCH ×3 (09:11→18:10)
[2020-01-20] MEDS: AMIODARONE HCL 200 MG TAB PO SCH (10:07)
[2020-01-20] MEDS: ISOSORBIDE MONONITRATE ER 60 MG TAB PO SCH (10:08)
[2020-01-20 17:00] VITALS: BP 113/60
[2020-01-20 22:00] VITALS: BP 113/61
[2020-01-21 04:48] VITALS: BP 103/53
[2020-01-21 05:53] LABS: Basophils # (auto) 0 10 ^3/uL (0-0.2); Eosinophils # (auto) 0.1 10 ^3/uL (0-0.8); Lymphocytes # (auto) 0.7 10 ^3/uL (0.4-5.4); Monocytes # (auto) 0.2 10 ^3/uL (0-1.3); Neutrophils # (auto) 2.9 10 ^3/uL (1.6-8.6); Red Blood Cells 4.12 10^6/uL (4.5-5.90); Red Cell Distribution Width 18.9 % (11.8-14.3)
[2020-01-21 05:57] LABS: Basophils % (auto) 0.8 % (0.0-2.0); Eosinophils % (auto) 1.9 % (0.0-7.0); Hematocrit 31.8 % (41.0-53.0); Hemoglobin 9.8 g/dL (13.5-17.5); Lymphocytes % (auto) 17.1 % (10.0-50.0); Mean Corpuscular Hemoglobin 23.9 pg (28.0-32.0); Mean Corpuscular Hgb Conc. 30.9 g/dL (32.0-36.0); Mean Corpuscular Volume 77.3 fL (80.0-100.0); Monocytes % (auto) 5.7 % (0.0-12.0); Neutrophils % (auto) 74.5 % (37.0-80.0); Nucleated Red Blood Cells % 0.2 %; Platelet Count (auto) 78 10^3/uL (140-450); White Blood Cell 3.8 10^3/uL (4.4-10.8)
[2020-01-21] MEDS: hydrALAZINE HCL 25 MG TAB PO SCH ×3 (06:00→21:55)
[2020-01-21 06:04] LABS: Potassium 4.6 mmol/L (3.5-5.1)
[2020-01-21 06:06] LABS: BUN/Creatinine Ratio 40.4; Calcium 8.1 mg/dL (8.5-10.1)
[2020-01-21] MEDS: LEVOTHYROXINE SODIUM 100 MCG TAB PO SCH (06:56)
[2020-01-21] MEDS: FUROSEMIDE 100 MG/10ML VIAL IV SCH ×2 (06:56→18:00)
[2020-01-21] MEDS: GLIMEPIRIDE 2 MG TAB PO SCH (06:56)
[2020-01-21] MEDS: InsuLIN REG 1unit/0.01ml Soln (100units/ml) SC SCH ×4 (06:57→21:58)
[2020-01-21] MEDS: ACCU-CHEK COMFORT CURVE STRIP VI SCH ×4 (06:57→21:56)
[2020-01-21 08:01] VITALS: BP 108/49
[2020-01-21] MEDS: Glucerna Carbsteady SHAKE Vanilla 8oz PO SCH ×3 (08:39→18:27)
[2020-01-21] MEDS: SALINE 0.65 % NASAL SPRAY 45ML BOTTLE EACHNOSTRI PRN (08:44)
[2020-01-21] MEDS: HYDROcodone-ACET 7.5/325MG TAB PO PRN ×2 (08:47→19:45)
[2020-01-21 09:00] VITALS: BP 108/49
[2020-01-21] MEDS: ISOSORBIDE MONONITRATE ER 60 MG TAB PO SCH (10:00)
[2020-01-21] MEDS: AMIODARONE HCL 200 MG TAB PO SCH (11:10)
[2020-01-21] MEDS ORDERED: PANTOPRAZOLE 40 MG TAB PO ONE (11:45)
[2020-01-21 13:00] VITALS: BP 109/47
[2020-01-21 17:00] VITALS: BP 96/42
[2020-01-21] MEDS: Ensure HIGH Protein Vanilla 8oz Bottle PO SCH (18:27)
[2020-01-21 22:00] VITALS: BP 100/57
[2020-01-21] MEDS: ALPRAZolam 0.5 MG TAB PO PRN (23:56)
[2020-01-22] VITALS (7 sets, daily range): BP systolic 98–112; BP diastolic 45–63
[2020-01-22] MEDS: HYDROcodone-ACET 7.5/325MG TAB PO PRN ×3 (04:00→18:23)
[2020-01-22] MEDS: FUROSEMIDE 100 MG/10ML VIAL IV SCH ×2 (05:48→18:00)
[2020-01-22] MEDS: hydrALAZINE HCL 25 MG TAB PO SCH ×3 (05:48→22:00)
[2020-01-22] MEDS: GLIMEPIRIDE 2 MG TAB PO SCH (06:50)
[2020-01-22] MEDS: InsuLIN REG 1unit/0.01ml Soln (100units/ml) SC SCH ×4 (06:51→23:19)
[2020-01-22] MEDS: ACCU-CHEK COMFORT CURVE STRIP VI SCH ×4 (06:51→22:00)
[2020-01-22] MEDS: LEVOTHYROXINE SODIUM 100 MCG TAB PO SCH (06:51)
[2020-01-22] MEDS: Ensure HIGH Protein Vanilla 8oz Bottle PO SCH ×2 (08:00→18:42)
[2020-01-22] MEDS: Glucerna Carbsteady SHAKE Vanilla 8oz PO SCH ×3 (08:00→18:42)
[2020-01-22] MEDS: SALINE 0.65 % NASAL SPRAY 45ML BOTTLE EACHNOSTRI PRN (09:53)
[2020-01-22] MEDS: ISOSORBIDE MONONITRATE ER 60 MG TAB PO SCH (09:54)
[2020-01-22] MEDS: PANTOPRAZOLE 40 MG TAB PO SCH (09:54)
[2020-01-22] MEDS: AMIODARONE HCL 200 MG TAB PO SCH (09:54)
[2020-01-23] MEDS: HYDROcodone-ACET 7.5/325MG TAB PO PRN ×2 (00:39→12:55)
[2020-01-23] MEDS: ALPRAZolam 0.5 MG TAB PO PRN (01:29)
[2020-01-23 05:00] VITALS: BP 102/58
[2020-01-23] MEDS: hydrALAZINE HCL 25 MG TAB PO SCH ×4 (06:00→21:57)
[2020-01-23] MEDS: FUROSEMIDE 100 MG/10ML VIAL IV SCH (06:28)
[2020-01-23] MEDS: GLIMEPIRIDE 2 MG TAB PO SCH (06:33)
[2020-01-23] MEDS: LEVOTHYROXINE SODIUM 100 MCG TAB PO SCH (06:34)
[2020-01-23] MEDS: InsuLIN REG 1unit/0.01ml Soln (100units/ml) SC SCH ×4 (06:34→22:08)
[2020-01-23] MEDS: ACCU-CHEK COMFORT CURVE STRIP VI SCH ×4 (06:34→22:06)
[2020-01-23 08:00] VITALS: BP 109/60
[2020-01-23] MEDS: Ensure HIGH Protein Vanilla 8oz Bottle PO SCH ×2 (08:00→18:00)
[2020-01-23 09:00] VITALS: BP 109/60
[2020-01-23] MEDS: AMIODARONE HCL 200 MG TAB PO SCH (10:00)
[2020-01-23] MEDS: ISOSORBIDE MONONITRATE ER 60 MG TAB PO SCH (10:01)
[2020-01-23] MEDS: PANTOPRAZOLE 40 MG TAB PO SCH (10:01)
[2020-01-23] MEDS: Glucerna Carbsteady SHAKE Vanilla 8oz PO SCH ×3 (11:32→18:01)
[2020-01-23 13:00] VITALS: BP 99/49
[2020-01-23 20:00] VITALS: BP 112/45
[2020-01-23 22:18] VITALS: BP 112/45
[2020-01-24] MEDS: HYDROcodone-ACET 7.5/325MG TAB PO PRN (00:28)
[2020-01-24 05:00] VITALS: BP 105/53
[2020-01-24] MEDS: hydrALAZINE HCL 25 MG TAB PO SCH ×2 (06:00→14:00)
[2020-01-24] MEDS: GLIMEPIRIDE 2 MG TAB PO SCH (06:48)
[2020-01-24] MEDS: LEVOTHYROXINE SODIUM 100 MCG TAB PO SCH (06:48)
[2020-01-24] MEDS: ACCU-CHEK COMFORT CURVE STRIP VI SCH ×2 (06:49→12:24)
[2020-01-24] MEDS: InsuLIN REG 1unit/0.01ml Soln (100units/ml) SC SCH ×2 (06:49→12:24)
[2020-01-24 09:00] VITALS: BP 103/60
[2020-01-24] MEDS ORDERED: FUROSEMIDE 100 MG/10ML VIAL IV SCH (10:00)
[2020-01-24] MEDS: ISOSORBIDE MONONITRATE ER 60 MG TAB PO SCH (10:13)
[2020-01-24] MEDS: PANTOPRAZOLE 40 MG TAB PO SCH (10:13)
[2020-01-24] MEDS: AMIODARONE HCL 200 MG TAB PO SCH (10:15)
[2020-01-24] MEDS: Glucerna Carbsteady SHAKE Vanilla 8oz PO SCH ×2 (10:16→12:25)
[2020-01-24] MEDS: Ensure HIGH Protein Vanilla 8oz Bottle PO SCH (10:16)
[2020-01-24 12:30] VITALS: BP 103/60
[2020-01-24 13:00] VITALS: BP 104/61
== END 2020-01-24 16:00 | disposition home or self-care (01) | DRG 291 ==
LOC: ER 06:32 → EDBD 06:32 → TELE 06:33 → TELE-WESTW 16:36
PROVIDERS: ADMIT Nurse Practitioner Acute Care; ATTEND Internal Medicine
PROC: 0W993ZZ Drainage of Right Pleural Cavity, Percutaneous Approach (ICD-10-PCS; principal; 2020-01-15)
PROC: 0W9930Z Drainage of Right Pleural Cavity with Drainage Device, Percutaneous Approach (ICD-10-PCS; 2020-01-18)
DX: I13.0 Hypertensive heart and chronic kidney disease with heart failure and stage 1 through stage 4 chronic kidney disease, or unspecified chronic kidney disease (principal); J18.9 Pneumonia, unspecified organism; J96.21 Acute and chronic respiratory failure with hypoxia; I50.23 Acute on chronic systolic (congestive) heart failure; D61.818 Other pancytopenia; E44.0 Moderate protein-calorie malnutrition; J98.11 Atelectasis; J93.9 Pneumothorax, unspecified; E87.1 Hypo-osmolality and hyponatremia; J91.8 Pleural effusion in other conditions classified elsewhere; N39.0 Urinary tract infection, site not specified; L97.519 Non-pressure chronic ulcer of other part of right foot with unspecified severity; I25.5 Ischemic cardiomyopathy; K74.60 Unspecified cirrhosis of liver; I48.91 Unspecified atrial fibrillation; I25.10 Atherosclerotic heart disease of native coronary artery without angina pectoris; E11.621 Type 2 diabetes mellitus with foot ulcer; E11.42 Type 2 diabetes mellitus with diabetic polyneuropathy; E11.21 Type 2 diabetes mellitus with diabetic nephropathy; E03.9 Hypothyroidism, unspecified; L89.152 Pressure ulcer of sacral region, stage 2; Z95.1 Presence of aortocoronary bypass graft; R29.6 Repeated falls; Z68.25 Body mass index [BMI] 25.0-25.9, adult; E11.22 Type 2 diabetes mellitus with diabetic chronic kidney disease; E61.1 Iron deficiency; L89.621 Pressure ulcer of left heel, stage 1; E78.5 Hyperlipidemia, unspecified; E86.0 Dehydration; I48.0 Paroxysmal atrial fibrillation; J44.9 Chronic obstructive pulmonary disease, unspecified; Z80.0 Family history of malignant neoplasm of digestive organs; Z82.49 Family history of ischemic heart disease and other diseases of the circulatory system; I25.2 Old myocardial infarction; Z79.84 Long term (current) use of oral hypoglycemic drugs; Z85.828 Personal history of other malignant neoplasm of skin; Z83.3 Family history of diabetes mellitus; Z82.3 Family history of stroke; Z87.891 Personal history of nicotine dependence; Z86.711 Personal history of pulmonary embolism; Z95.810 Presence of automatic (implantable) cardiac defibrillator; Z88.0 Allergy status to penicillin; Z88.2 Allergy status to sulfonamides; N18.9 Chronic kidney disease, unspecified; Z79.899 Other long term (current) drug therapy
CPT/HCPCS: 10022; 32555; 36415; 70450; 71045; 71250; 72192; 76604; 76942; 77012; 80048; 80053; 81001; 82533; 82607; 82728; 82746; 82962; 83036; 83540; 83615; 83735; 83880; 83986; 84443; 84484; 85025; 85045; 85610; 85730; 86880; 87040; 87070; 87081; 87205; 89051; 92610; 93005; 97110; 97116; 97163; 97530; A4223; C1729; G0378; J1815; J3490

== ENCOUNTER 2020-02-06 15:11 | Inpatient (IN) | payer MEDICARE, MEDICAID ==
[~2020-02-06] VITALS: Ht 177.8 cm; Wt 68.8 kg
[~2020-02-06 15:11] MED LIST changes: +AMIO100T3 PO; -AMIO200T33 PO; -ATOR40TA52 PO; +BUDE1AER4 IN; -BUDE2SUS3 IN; -BUME1TAB3 PO; +COEN100C37 PO; +EMPA1TAB PO; +GLIM2TAB33 PO; -GLIM4TAB42 PO; +INSU100I51 SC; -INSUINJ18 SC; -METO25TA93 PO; +OMEG100078 PO; -[UNRECOGNIZED DRUG - CODE] PO
[2020-02-06 15:43] LABS: Basophils # (auto) 0 10 ^3/uL (0-0.2); Eosinophils # (auto) 0 10 ^3/uL (0-0.8); Lymphocytes # (auto) 0.5 10 ^3/uL (0.4-5.4); Mean Corpuscular Hgb Conc. 30.6 g/dL (32.0-36.0); Monocytes # (auto) 0.2 10 ^3/uL (0-1.3); Neutrophils # (auto) 2.8 10 ^3/uL (1.6-8.6); Nucleated Red Blood Cells % 0.1 %; Red Blood Cells 3.83 10^6/uL (4.5-5.90); White Blood Cell 3.5 10^3/uL (4.4-10.8)
[2020-02-06 15:46] LABS: Basophils % (auto) 0.7 % (0.0-2.0); Eosinophils % (auto) 0.4 % (0.0-7.0); Hematocrit 30.4 % (41.0-53.0); Hemoglobin 9.3 g/dL (13.5-17.5); Lymphocytes % (auto) 15.1 % (10.0-50.0); Mean Corpuscular Hemoglobin 24.3 pg (28.0-32.0); Mean Corpuscular Volume 79.4 fL (80.0-100.0); Neutrophils % (auto) 78.8 % (37.0-80.0); Red Cell Distribution Width 19.9 % (11.8-14.3)
[2020-02-06 15:48] LABS: Platelet Count (auto) 43 10^3/uL (140-450)
[2020-02-06 16:04] LABS: Albumin 2.5 g/dL (3.4-5.0); Calcium 8.1 mg/dL (8.5-10.1); Potassium 5.1 mmol/L (3.5-5.1)
[2020-02-06 16:11] LABS: BUN/Creatinine Ratio 26.7; Bilirubin, Total 0.6 mg/dL (0.2-1.0); Total Protein 6.8 g/dL (6.4-8.2)
[2020-02-06 16:36] LABS: INR 1.23 (0.9-1.15); Partial Thromboplastin Time 32.8 sec (23.64-32.05)
[2020-02-06 17:48] LABS: Urine Bacteria MOD /hpf (None Seen); Urine Blood 2+ /uL (Negative); Urine Budding Yeast MANY /hpf (None Seen); Urine Mucus FEW (None Seen); Urine WBC 1103 /hpf (0 - 3); Urine WBC Clumps PRESENT /hpf (None Seen)
[2020-02-06] MEDS ORDERED: cefTRIAXone 1GM/50ML D5W 50 ML IV ONE (21:15)
[2020-02-06] MEDS ORDERED: FUROSEMIDE 40 MG/4 ML VIAL IV ONE (22:00)
[2020-02-06] MEDS: METOPROLOL TARTRATE 25 MG TAB PO SCH (22:00)
[2020-02-06] MEDS ORDERED: MORPHINE SULF INJ 2 MG/ML SYRINGE 1ML IV PRN (22:30)
[2020-02-06] MEDS ORDERED: NITROGLYCERIN 0.4 MG SL TAB SL PRN (22:30)
--- NOTE | 2020-02-06 23:02 | NUR ---
ARRIVAL NOTE pt arrived to [address]A via wheelchair. pt transferred self to hospital bed with minimal assist. pt is A&Ox4. respirations are even and nonlabored on 2Lnc. POC discussed with pt.
[2020-02-06 23:29] VITALS: BP 107/51
--- NOTE | 2020-02-07 00:45 | NUR ---
MRSA SWAB sent to lab
[2020-02-07] MEDS: ATORVASTATIN 20 MG TAB PO SCH ×2 (00:51→22:11)
[2020-02-07 05:00] VITALS: BP 104/44
[2020-02-07] MEDS: FUROSEMIDE 20 MG/2 ML VIAL IV SCH ×2 (06:36→18:00)
[2020-02-07] MEDS: LEVOTHYROXINE SODIUM 100 MCG TAB PO SCH (06:37)
--- NOTE | 2020-02-07 07:31 | NUR ---
closing note pt resting in right lateral position with eyes closed. no s/s of pain or discomfort at this time. respirations are even and nonlabored on 2Lnc. bed in low locked position, call light within reach.
--- NOTE | 2020-02-07 08:00 | NUR ---
Morning note Patient resting in bed with even and unlabored respirations, no distress noted. Instructed patient on POC, fall precautions, pressure injury prevention and to call for assistance as needed. Patient verbalized understanding. Patient able to turn self independently. Fall precautions in place with call light within reach.
[2020-02-07] MEDS: METOPROLOL TARTRATE 25 MG TAB PO SCH (08:28)
[2020-02-07] MEDS: AMIODARONE HCL 200 MG TAB PO SCH (08:30)
[2020-02-07 09:00] VITALS: BP 91/44
--- NOTE | 2020-02-07 09:04 | NUR ---
RE: platelet transfusion Platelets to be available at approximately 1200 per blood bank staff member.
--- NOTE | 2020-02-07 09:57 | NUR ---
Spoke with Dr. Gallo RE: POC Informed MD PLTs are not available until approximately 1200 today. verbalized understanding.
[2020-02-07] MEDS ORDERED: ASPirin 81 mg TAB PO SCH (10:00)
[2020-02-07] MEDS ORDERED: SPIRONOLACTONE 25 MG TAB PO SCH (10:00)
--- NOTE | 2020-02-07 11:16 | NUR ---
RE: PLT transfusion/thoracentesis Patient is refusing thoracentesis. Patient stated "I got one done last time and they barely got any fluid out and it hurt like hell. It hurt for a long time after it too. I would rather just do the water pill to get the fluid out." Notified Dr. Shine. MD verbalized understanding. Clarified PLT transfusion order with Dr. Shine. PLT transfusion to be cancelled per MD. Patient has chronic thrombocytopenia.
--- NOTE | 2020-02-07 11:27 | NUR ---
MD was at bedside - Dr. Shine This RN was at bedside. POC discussed with the patient and this RN. MD aware of ASA being held per pharmacy. MD verbalized understanding. ASA to be administered per MD order.
[2020-02-07] MEDS ORDERED: cefTRIAXone 1GM/50ML D5W 50 ML IV ONE (11:30)
--- NOTE | 2020-02-07 11:57 | NUR ---
Family called RE: concerns with BP medications Patients daughter called to express concerns RE: BP medications. Phone call transferred to Dr. Shine. discussed POC and BP medications with patient's daughter. Patient's daughter verbalized understanding per Dr. Shine.
[2020-02-07 13:00] VITALS: BP 99/49
[2020-02-07] MEDS ORDERED: ASPI-498 PO (13:08)
[2020-02-07] MEDS ORDERED: CYAN1TAB11 PO (13:13)
[2020-02-07] MEDS ORDERED: GLIM4TAB42 PO (13:17)
[2020-02-07] MEDS ORDERED: FER325T PO (13:19)
[2020-02-07] MEDS ORDERED: ALBUAER3 IN (13:21)
[2020-02-07] MEDS ORDERED: DOCU100C8 PO (13:24)
[2020-02-07] MEDS: hydrALAZINE HCL 25 MG TAB PO SCH ×2 (14:50→22:00)
--- NOTE | 2020-02-07 15:18 | NUR ---
Consult wt loss/appetite Consider adding Glucerna BID if pt appetite and po intake is poor Est energy needs 1655-7159 kcal (25-30 kcal/kg IBW 75kg) Est protein needs 75-93g (1-1.1g/kg IBW 75kg) Will reassess prn. Addendum: 02/07/20 at [address] Amended: Links added.
[2020-02-07 16:51] VITALS: BP 92/48
--- NOTE | 2020-02-07 18:16 | NUR ---
Scheduled Lasix held per MD Notified Dr. Pérez of patient's recent BP. Scheduled dose of Lasix to be held per .
--- NOTE | 2020-02-07 18:17 | NUR ---
was at bedside - Dr. Pérez.
[2020-02-07] MEDS: TAMSULOSIN HYDROCHLORIDE 0.4 MG CAP PO SCH (18:19)
--- NOTE | 2020-02-07 19:17 | NUR ---
Closing note/care endorsed Patient resting in bed with even and unlabored respirations, no distress noted. Fall precautions in place with call light within reach.
[2020-02-07 19:30] VITALS: BP 100/50
--- NOTE | 2020-02-07 19:30 | NUR ---
OPENING SHIFT NOTE Assumed care of patient who is A&O x4. Currently on 2L NC with no s/s of distress. Denies pain at this time. PIV in right forearm is intact and patent. Flushed with 10ml NS. Patient is ambulatory with the use of a walker at baseline. Bed is in low locked position with side rails up x2. Call light is within reach and patient encouraged to call for assistance when needed. Bed alarm on for patient safety. Will continue to monitor for changes PRN.
[2020-02-07 22:07] VITALS: BP 100/50
--- NOTE | 2020-02-08 00:10 | NUR ---
HOSPITALIST Spoke with Hospitalist, Dr. Bob. New orders received and read back. Will follow through.
[2020-02-08] MEDS: ALPRAZolam 0.5 MG TAB PO PRN (00:17)
--- NOTE | 2020-02-08 00:30 | NUR ---
Patient reports 10/10 pain in right side of back. No PRN orders for pain management. Hospitalist paged to request orders.
[2020-02-08] MEDS ORDERED: MORPHINE SULF INJ 2 MG/ML SYRINGE 1ML IV PRN (00:45)
[2020-02-08] MEDS: OXYCODONE W/ ACETAMINOPHEN 5/325MG TABLET PO PRN ×4 (00:55→23:10)
--- NOTE | 2020-02-08 04:29 | NUR ---
Patient coughing small amount of bloody mucus. Platelets are low at 43. Patient is in no distress. Dr. Bob notified, instructs to continue to avoid anticoagulants and review morning labs and notify of any changes.
[2020-02-08 05:34] VITALS: BP 91/44
[2020-02-08] MEDS: hydrALAZINE HCL 25 MG TAB PO SCH ×3 (05:58→22:00)
[2020-02-08] MEDS: FUROSEMIDE 20 MG/2 ML VIAL IV SCH (05:58)
[2020-02-08] MEDS: LEVOTHYROXINE SODIUM 100 MCG TAB PO SCH (06:10)
[2020-02-08 07:29] LABS: Basophils # (auto) 0 10 ^3/uL (0-0.2); Basophils % (auto) 0.7 % (0.0-2.0); Eosinophils # (auto) 0 10 ^3/uL (0-0.8); Eosinophils % (auto) 1.2 % (0.0-7.0); Lymphocytes # (auto) 0.7 10 ^3/uL (0.4-5.4); Monocytes # (auto) 0.2 10 ^3/uL (0-1.3); Monocytes % (auto) 7.2 % (0.0-12.0)
[2020-02-08 07:31] LABS: Hematocrit 28.1 % (41.0-53.0); Hemoglobin 8.7 g/dL (13.5-17.5); Lymphocytes % (auto) 24.6 % (10.0-50.0); Mean Corpuscular Hemoglobin 24.6 pg (28.0-32.0); Mean Corpuscular Volume 79.3 fL (80.0-100.0); Neutrophils # (auto) 1.8 10 ^3/uL (1.6-8.6); Neutrophils % (auto) 66.3 % (37.0-80.0); Nucleated Red Blood Cells % 0.1 %; Platelet Count (auto) 34 10^3/uL (140-450); Red Blood Cells 3.54 10^6/uL (4.5-5.90); Red Cell Distribution Width 19.2 % (11.8-14.3); White Blood Cell 2.6 10^3/uL (4.4-10.8)
[2020-02-08 07:42] LABS: Calcium 7.8 mg/dL (8.5-10.1); Potassium 4.4 mmol/L (3.5-5.1)
[2020-02-08 07:46] LABS: BUN/Creatinine Ratio 27.2
[2020-02-08 09:00] VITALS: BP 100/54
--- NOTE | 2020-02-08 09:03 | NUR ---
diet technician registered at bedside.
[2020-02-08] MEDS: cefTRIAXone 1GM/50ML D5W 50 ML IV SCH (09:22)
[2020-02-08] MEDS: SPIRONOLACTONE 25 MG TAB PO SCH (09:23)
--- NOTE | 2020-02-08 09:23 | NUR ---
RE: Pain Patient requesting "pain pill". Patient refusing IV PRN pain medication. Patient stated "I want the pill they gave me last night. That worked well." Patient rated pain 10/10 on the pain scale.
[2020-02-08] MEDS: AMIODARONE HCL 200 MG TAB PO SCH (09:24)
[2020-02-08] MEDS: ISOSORBIDE MONONITRATE ER 60 MG TAB PO SCH (09:24)
[2020-02-08] MEDS ORDERED: ASPirin 81 mg TAB PO SCH (10:00)
[2020-02-08] MEDS ORDERED: FLUCONAZOLE 100 MG TAB PO ONE (10:30)
[2020-02-08] MEDS ORDERED: DEXTROSE (50%) 50ML SYRG IV PRN (10:30)
--- NOTE | 2020-02-08 11:15 | NUR ---
Discussed POC with MD - notified MD of PLT level Dr. Shine verbalized understanding. MD to place orders.
--- NOTE | 2020-02-08 12:13 | NUR ---
Patient's daughter called for an update patient's daughter, Clari, called for an update. Password obtained. Update provided.
[2020-02-08] MEDS: ACCU-CHEK COMFORT CURVE STRIP VI SCH ×3 (12:23→22:26)
[2020-02-08] MEDS: InsuLIN REG 1unit/0.01ml Soln (100units/ml) SC SCH ×3 (12:34→22:29)
[2020-02-08 13:00] VITALS: BP 91/50
--- NOTE | 2020-02-08 14:25 | NUR ---
Scheduled medication held d/t low BP Scheduled Apresoline held due to BP of 91/50mmHg. Patient is resting in bed with eyes closed; respirations even and unlabored, no distress noted. Call light within reach.
[2020-02-08] MEDS: TAMSULOSIN HYDROCHLORIDE 0.4 MG CAP PO SCH (16:50)
[2020-02-08 17:00] VITALS: BP 97/51
--- NOTE | 2020-02-08 18:38 | NUR ---
Closing note Patient resting in bed with even and unlabored respirations, no distress noted. Fall precautions in place with call light within reach.
--- NOTE | 2020-02-08 19:10 | NUR ---
Care endorsed to RAINE Martínez.
--- NOTE | 2020-02-08 19:25 | NUR ---
OPENING SHIFT NOTE Patient is A&O x4, currently on 2L NC with no s/s of distress. Denies pain at this time. Patient is ambulatory with the use of a walker at home, Currently requires moderate assist to the BSC. PIV in left forearm is intact and patent. Flushed with 10mL NS. POC discussed. Bed is in low locked position and call light is within reach. Patient encouraged to call for assistance when needed. Will continue to monitor for changes PRN.
[2020-02-08 20:00] VITALS: BP 101/48
--- NOTE | 2020-02-08 20:02 | NUR ---
NAUSEA/VOMITING patient experienced one episode of vomiting containing food particles after eating dinner. Patient remains nauseous at this time. Hospitalist paged for recommendation.
[2020-02-08] MEDS ORDERED: ONDANSETRON HCL 4 MG/2 ML VIAL IV PRN (21:30)
[2020-02-08 22:00] VITALS: BP 101/48
[2020-02-08] MEDS: ATORVASTATIN 20 MG TAB PO SCH (22:25)
--- NOTE | 2020-02-08 23:10 | NUR ---
PAIN Patient reports 6/10 back pain. Requests PRN Teeteeocet. Will follow through.
[2020-02-09] MEDS: ALPRAZolam 0.5 MG TAB PO PRN (01:12)
--- NOTE | 2020-02-09 01:12 | NUR ---
Patient requesting Xanax 0.5mg due to anxiety and difficulty sleeping. Will follow through.
[2020-02-09 05:00] VITALS: BP 100/46
[2020-02-09] MEDS: hydrALAZINE HCL 25 MG TAB PO SCH ×3 (06:00→21:50)
[2020-02-09] MEDS: LEVOTHYROXINE SODIUM 100 MCG TAB PO SCH (06:32)
[2020-02-09] MEDS: ACCU-CHEK COMFORT CURVE STRIP VI SCH ×4 (06:33→21:51)
[2020-02-09] MEDS: InsuLIN REG 1unit/0.01ml Soln (100units/ml) SC SCH ×4 (06:39→21:51)
[2020-02-09 07:42] LABS: Basophils # (auto) 0 10 ^3/uL (0-0.2); Eosinophils # (auto) 0 10 ^3/uL (0-0.8); Lymphocytes # (auto) 0.4 10 ^3/uL (0.4-5.4); Lymphocytes % (auto) 16.2 % (10.0-50.0); Mean Corpuscular Hemoglobin 24.6 pg (28.0-32.0); Monocytes # (auto) 0.1 10 ^3/uL (0-1.3); Nucleated Red Blood Cells % 0.1 %; Platelet Count (auto) 27 10^3/uL (140-450); White Blood Cell 2.4 10^3/uL (4.4-10.8)
[2020-02-09 07:43] LABS: Basophils % (auto) 0.5 % (0.0-2.0); Eosinophils % (auto) 1.6 % (0.0-7.0); Hematocrit 27.5 % (41.0-53.0); Hemoglobin 8.4 g/dL (13.5-17.5); Mean Corpuscular Hgb Conc. 30.7 g/dL (32.0-36.0); Mean Corpuscular Volume 80.1 fL (80.0-100.0); Neutrophils # (auto) 1.9 10 ^3/uL (1.6-8.6); Neutrophils % (auto) 76.7 % (37.0-80.0); Red Blood Cells 3.43 10^6/uL (4.5-5.90); Red Cell Distribution Width 19.3 % (11.8-14.3)
--- NOTE | 2020-02-09 07:50 | NUR ---
Opening Shift Note Assumed care of patient, awake and alert. No S/S of distress/SOB or pain. Encouraged patient to turn self at least every 2 hours to prevent skin breakdown. Patient verbalized understanding. Instructed on POC and to call for assist PRN, will continue to monitor for changes Q1hr and PRN.
[2020-02-09 08:00] VITALS: BP 106/54
[2020-02-09 08:02] LABS: BUN/Creatinine Ratio 32.7
[2020-02-09 09:00] VITALS: BP 106/54
[2020-02-09] MEDS: cefTRIAXone 1GM/50ML D5W 50 ML IV SCH (09:19)
[2020-02-09] MEDS: SPIRONOLACTONE 25 MG TAB PO SCH (09:23)
[2020-02-09] MEDS: FLUCONAZOLE 100 MG TAB PO SCH (09:24)
[2020-02-09] MEDS: ISOSORBIDE MONONITRATE ER 60 MG TAB PO SCH (09:24)
[2020-02-09] MEDS: AMIODARONE HCL 200 MG TAB PO SCH (09:26)
--- NOTE | 2020-02-09 09:30 | NUR ---
IV insertion IV access obtained, via clean sterile technique by inserting 22 gauge catheter at left wrist after 1 attempt. IV secured properly. No trauma to site. Patient tolerated well.
--- NOTE | 2020-02-09 09:35 | NUR ---
IV removal Right wrist not patent. IV DC'd with clean sterile technique, catheter fully intact. Pressure dressing applied to site. Patient tolerated well.
[2020-02-09] MEDS ORDERED: FUROSEMIDE 20 MG/2 ML VIAL IV SCH ×2 (10:00→13:08)
--- NOTE | 2020-02-09 12:55 | NUR ---
DR PHAN AT BED SIDE. NEW ORDERS RECEIVED. WILL IMPLEMENT.
[2020-02-09 13:00] VITALS: BP 106/47
[2020-02-09] MEDS: MIDODRINE HCL 10 MG TAB PO SCH ×2 (14:58→18:00)
--- NOTE | 2020-02-09 15:40 | NUR ---
Patient's daughter called for an update patient's daughter, Clari, called for an update. Password obtained. Update provided
[2020-02-09 17:00] VITALS: BP 100/54
[2020-02-09] MEDS: TAMSULOSIN HYDROCHLORIDE 0.4 MG CAP PO SCH (18:00)
[2020-02-09] MEDS: FUROSEMIDE 20 MG/2 ML VIAL IV SCH (18:36)
--- NOTE | 2020-02-09 19:34 | NUR ---
RECEIVED PATIENT FROM DAY SHIFT RN. PATIENT RESTING IN BED. NO S/S OF DISTRESS NOTED. DENIED PAIN FOR NOW. BRUISES AND SCABS NOTED ON BOTH ARMS. POC INSTRUCTED AND ENCOURAGED PATIENT TO CALL FOR SPORTS MANAGER IF NEEDED. BED IN LOWEST POSITION WITH SIDE RAILS UP X 2. CALL MULLER WITHIN REACH. ALARM ON. CONTINUE TO MONITOR FOR CHANGES Q1H AND PRN.
[2020-02-09 21:36] VITALS: BP 114/77
[2020-02-09] MEDS: ATORVASTATIN 20 MG TAB PO SCH (21:50)
--- NOTE | 2020-02-09 21:52 | NUR ---
NOTED PATIENT'S NOSE BLEEDING, SAT PATIENT UP AND ICE PACK APPLIED. CONTINUE TO MONITOR.
--- NOTE | 2020-02-09 22:09 | NUR ---
ACCU-CHECK, BS 211. INSULIN GIVEN ORDERED. PATIENT'S NOSE STILL BLEEDING. ICE PACK CONTINUED, CONTINUE TO MONITOR.
--- NOTE | 2020-02-09 22:39 | NUR ---
NOSE BLEED STOPPED. NO S/S OF DISTRESS NOTED. CONTINUE TO MONITOR.
[2020-02-09] MEDS: OXYCODONE W/ ACETAMINOPHEN 5/325MG TABLET PO PRN (23:34)
--- NOTE | 2020-02-09 23:34 | NUR ---
PATIENT C/O BACK PAIN @ 02/19, MEDICATED PATIENT ORDERED. CONTINUE TO MONITOR.
--- NOTE | 2020-02-10 00:30 | NUR ---
REASSESSED PAIN. PATIENT SLEEPING. NO S/S OF PAIN NOTED. CONTINUE TO MONITOR.
--- NOTE | 2020-02-10 03:28 | NUR ---
PATIENT SLEEPING. NO S/S OF DISTRESS NOTED. NO S/S OF BLEEDING NOTED. CONTINUE TO MONITOR.
[2020-02-10 05:00] VITALS: BP 104/56
[2020-02-10] MEDS: MIDODRINE HCL 10 MG TAB PO SCH ×3 (06:00→17:26)
[2020-02-10] MEDS: FUROSEMIDE 20 MG/2 ML VIAL IV SCH (06:25)
[2020-02-10] MEDS: LEVOTHYROXINE SODIUM 100 MCG TAB PO SCH (06:26)
[2020-02-10] MEDS: hydrALAZINE HCL 25 MG TAB PO SCH ×3 (06:26→22:00)
[2020-02-10] MEDS: ACCU-CHEK COMFORT CURVE STRIP VI SCH ×4 (06:26→22:07)
[2020-02-10] MEDS: InsuLIN REG 1unit/0.01ml Soln (100units/ml) SC SCH ×4 (06:32→22:18)
[2020-02-10] MEDS: cefTRIAXone 1GM/50ML D5W 50 ML IV SCH (08:50)
[2020-02-10 09:00] VITALS: BP 102/58
[2020-02-10] MEDS: SPIRONOLACTONE 25 MG TAB PO SCH (10:03)
[2020-02-10] MEDS: AMIODARONE HCL 200 MG TAB PO SCH (10:03)
[2020-02-10] MEDS: ISOSORBIDE MONONITRATE ER 60 MG TAB PO SCH (10:04)
[2020-02-10] MEDS: FLUCONAZOLE 100 MG TAB PO SCH (10:04)
--- NOTE | 2020-02-10 10:46 | NUR ---
Pulmonary Consultation Dr. Byrnes at [facility] side
--- NOTE | 2020-02-10 12:18 | NUR ---
Nutrition Followup Note Wt 74.6kg Pt reports his appetite is okay, not great but still eats food. Pt said his appetite is decreasing because he is getting old. Pt po intake is improved, with fair intake of about 70% 02/08 per RN doc Est energy needs 1554-1431 kcal (25-30 kcal/kg IBW 75kg) Est protein needs 60-75g (0.8-1g/kg BW 75kg) Will reassess prn. Labs: BUN 34H, POC Gluc 145H, Ca 8.0L, Alb 2.5L Skin: 14 mod risk, left upper arm tear per RN doc, full details in WC doc BM: 1 02/07 per RN doc PES: Partially resolved, pt intake has improved, pt wt currently 74.6kg per RN doc: Inadequate oral intake aeb possible 12kg wt loss since previous visit r/t consult for decreased appetite Comments 1) Continue to monitor po intake, skin status, labs 2) Consider adding Glucerna BID if po intake is poor 3) Continue current plan of care Expected Outcomes/Goals: 1) Pt po intake >75% 2) pt wt will maintain and not lose anymore while in hospital 3) F/u 3-5 days
[2020-02-10] MEDS: OXYCODONE W/ ACETAMINOPHEN 5/325MG TABLET PO PRN ×2 (13:51→21:33)
[2020-02-10 14:36] VITALS: BP 98/56
--- NOTE | 2020-02-10 14:42 | NUR ---
Dr. Nunez at bed side discussing POC with patient. Patient verbalizes understanding. New orders received, read back and verified. Will carry out.
--- NOTE | 2020-02-10 15:02 | NUR ---
PATIENT REFUSED PT. RAINE LOUISE WAS NOTIFIED. Addendum: 02/10/20 at 1502 by CESAR BRUNNER PTT Amended: Links added.
[2020-02-10 16:36] VITALS: BP 132/74
[2020-02-10] MEDS: TAMSULOSIN HYDROCHLORIDE 0.4 MG CAP PO SCH (17:26)
[2020-02-10] MEDS: FUROSEMIDE 40 MG/4 ML VIAL IV SCH (17:26)
--- NOTE | 2020-02-10 19:45 | NUR ---
Opening Shift Note Assumed care of patient, awake and alert. No S/S of distress/SOB or pain. Instructed on POC and to call for assist PRN, patient verbalized understanding. Safety precaution in place, bed alarm on, call light within reach, will continue to monitor for changes Q1hr and PRN.
[2020-02-10] MEDS: ATORVASTATIN 20 MG TAB PO SCH (21:28)
[2020-02-10 22:00] VITALS: BP 107/52
[2020-02-10] MEDS ORDERED: INSULIN LANTUS (GLARGINE) 1 /0.01ml (100units/ml) SC ONE (22:30)
--- NOTE | 2020-02-11 05:12 | NUR ---
Dressing changed to sacral redness, cleansed with soap and water and applied Z-guard, covered with optifoam and turned to his side, patient tolerated well
[2020-02-11 05:54] LABS: Basophils # (auto) 0 10 ^3/uL (0-0.2); Eosinophils # (auto) 0 10 ^3/uL (0-0.8); Hemoglobin 8.5 g/dL (13.5-17.5); Lymphocytes # (auto) 0.6 10 ^3/uL (0.4-5.4); Mean Corpuscular Volume 78.3 fL (80.0-100.0); White Blood Cell 2.8 10^3/uL (4.4-10.8)
[2020-02-11 05:57] LABS: Basophils % (auto) 0.6 % (0.0-2.0); Eosinophils % (auto) 1.3 % (0.0-7.0); Hematocrit 26.8 % (41.0-53.0); Mean Corpuscular Hgb Conc. 31.9 g/dL (32.0-36.0); Monocytes # (auto) 0.1 10 ^3/uL (0-1.3); Monocytes % (auto) 4.7 % (0.0-12.0); Neutrophils % (auto) 73.4 % (37.0-80.0); Platelet Count (auto) 30 10^3/uL (140-450); Red Blood Cells 3.42 10^6/uL (4.5-5.90); Red Cell Distribution Width 19.2 % (11.8-14.3)
[2020-02-11] MEDS: hydrALAZINE HCL 25 MG TAB PO SCH ×3 (06:00→22:00)
[2020-02-11 06:12] LABS: INR 1.23 (0.9-1.15); Partial Thromboplastin Time 35.2 sec (23.64-32.05)
[2020-02-11 06:18] LABS: Albumin 2.5 g/dL (3.4-5.0); Calcium 7.9 mg/dL (8.5-10.1); Magnesium 2.4 mg/dL (1.6-2.6); Potassium 4.8 mmol/L (3.5-5.1)
[2020-02-11] MEDS: FUROSEMIDE 40 MG/4 ML VIAL IV SCH (06:20)
[2020-02-11] MEDS: ACCU-CHEK COMFORT CURVE STRIP VI SCH ×4 (06:20→22:48)
[2020-02-11] MEDS: MIDODRINE HCL 10 MG TAB PO SCH (06:20)
[2020-02-11] MEDS: InsuLIN REG 1unit/0.01ml Soln (100units/ml) SC SCH ×4 (06:20→22:49)
[2020-02-11] MEDS: LEVOTHYROXINE SODIUM 100 MCG TAB PO SCH (06:20)
[2020-02-11 06:23] LABS: BUN/Creatinine Ratio 30.2; Bilirubin, Total 0.5 mg/dL (0.2-1.0); Phosphorus 3.6 mg/dL (2.5-4.90); Total Protein 6.6 g/dL (6.4-8.2)
--- NOTE | 2020-02-11 07:30 | NUR ---
Opening Shift Note Assumed care of patient, awake and alert X4. No S/S of distress/SOB or pain. reported at this time, Instructed on POC and to call for assist PRN, call light within reach, able to demonstrate how to call for assist, urinal within reach, fall precautions in place, will continue to monitor for changes Q1hr and PRN.
[2020-02-11 08:00] VITALS: BP 100/50
[2020-02-11 09:00] VITALS: BP 100/50
[2020-02-11] MEDS: ISOSORBIDE MONONITRATE ER 60 MG TAB PO SCH ×2 (10:00→11:41)
[2020-02-11] MEDS ORDERED: FAMOTIDINE (10MG/ML) 2ML VL IV SCH (10:00)
[2020-02-11] MEDS: SPIRONOLACTONE 25 MG TAB PO SCH (10:21)
[2020-02-11] MEDS: cefTRIAXone 1GM/50ML D5W 50 ML IV SCH (10:21)
[2020-02-11] MEDS: FLUCONAZOLE 100 MG TAB PO SCH (10:21)
[2020-02-11] MEDS: AMIODARONE HCL 200 MG TAB PO SCH (10:22)
[2020-02-11 13:00] VITALS: BP 103/45
--- NOTE | 2020-02-11 13:00 | NUR ---
DR HAYES AT BESIDE
[2020-02-11 17:00] VITALS: BP 93/54
--- NOTE | 2020-02-11 17:40 | NUR ---
PT SITTING UP IN BED NO DISTRESS NOTED, NO C/O DIZZY, SOB OR NAUSEA, CALL LIGHT WITHIN REACH, CONT CARE
[2020-02-11] MEDS: TAMSULOSIN HYDROCHLORIDE 0.4 MG CAP PO SCH (18:27)
[2020-02-11 22:00] VITALS: BP 104/56
--- NOTE | 2020-02-11 22:30 | NUR ---
Patient got upset, he thought he did something wrong to B bed that's why they transferred B bed to another room. Reoriented and explained the situation. Patient verbalized understanding, will continue to monitor
[2020-02-11] MEDS: ATORVASTATIN 20 MG TAB PO SCH (22:48)
[2020-02-11] MEDS: ALPRAZolam 0.5 MG TAB PO PRN (22:48)
[2020-02-11] MEDS: INSULIN LANTUS (GLARGINE) 1 /0.01ml (100units/ml) SC SCH (22:48)
[2020-02-12] VITALS (7 sets, daily range): BP systolic 104–109; BP diastolic 53–66
--- NOTE | 2020-02-12 02:30 | NUR ---
Patient felt weak and hungry and requested his blood sugar checked. BS at this time is 64. Offered sandwich and orange juice, will recheck blood sugar
--- NOTE | 2020-02-12 03:00 | NUR ---
Rechecked blood sugar and its 92. Will continue to monitor
[2020-02-12] MEDS: hydrALAZINE HCL 25 MG TAB PO SCH ×3 (06:00→22:09)
[2020-02-12] MEDS: ACCU-CHEK COMFORT CURVE STRIP VI SCH ×4 (06:15→22:09)
[2020-02-12] MEDS: InsuLIN REG 1unit/0.01ml Soln (100units/ml) SC SCH ×4 (06:15→22:12)
[2020-02-12] MEDS: LEVOTHYROXINE SODIUM 100 MCG TAB PO SCH (06:16)
[2020-02-12 06:24] LABS: Potassium 5.3 mmol/L (3.5-5.1)
[2020-02-12 06:31] LABS: Calcium 7.9 mg/dL (8.5-10.1)
--- NOTE | 2020-02-12 07:35 | NUR ---
Opening Shift Note Assumed care of patient, awake and alert X4. No S/S of distress/SOB or pain reported at this time, Instructed on POC and to call for assist PRN, call light within reach, able to demonstrate how to call for assist, urinal within reach, fall precautions in place, bed alarm activated and 2 side rails up, will continue to monitor for changes Q1hr and PRN
--- NOTE | 2020-02-12 08:00 | NUR ---
REPOSITIONED AND BLE ELEVATED ON PILLOWS BILATERAL HEELS HAVE PRESSURE AREAS, PT AWARE, PT EDUCATED ON THE NEED TO KEEP BLE ELEVATED ON PILLOWS WITH HEELS UP IN THE AIR TO AVOID FURTHER WORSENING OF PRESSURE ON HEELS, PT VERBALIZED UNDERSTANDING, PT ABLE TO DEMONSTRATE HOW TO RAISE BLE AND INSTRUCTED TO CALL FOR HELP IF HE NEEDS ASSISTANCE. CONT CARE
[2020-02-12] MEDS: SPIRONOLACTONE 25 MG TAB PO SCH (10:00)
[2020-02-12] MEDS: cefTRIAXone 1GM/50ML D5W 50 ML IV SCH (10:06)
[2020-02-12] MEDS: ISOSORBIDE MONONITRATE ER 60 MG TAB PO SCH (10:07)
[2020-02-12] MEDS: FAMOTIDINE 20 MG TAB PO SCH (10:07)
[2020-02-12] MEDS: AMIODARONE HCL 200 MG TAB PO SCH (10:09)
--- NOTE | 2020-02-12 11:40 | NUR ---
ABNORMAL LABS SODIUM 125, KCL 5.3, DR FRANKEL MADE AWARE, ALSO INFORMED THAT ALDACTONE WAS HELD DUE TO ELEVATED POTASSIUM LAB, CONT CARE
--- NOTE | 2020-02-12 12:45 | NUR ---
MD AT BEDSIDE DISCUSSING POC, PT AXOX4, NEW ORDERS ENTERD BY , CONT CARE
--- NOTE | 2020-02-12 13:04 | NUR ---
ACTIVITY PT ASSISTED TO BATHROOM, AMBULATING USING FWW AND EXCAVATOR BACKHOE OPERATOR O2 CANULA, NO DISTRESS NOTED, NO C/O SOB, CONT CARE
--- NOTE | 2020-02-12 17:30 | NUR ---
ACTIVITY PT OOB TO CHAIR, NO DISTRESS NOTED, NO C/O PAIN OR SOB, CALL LIGHT WITHIN REACH, CONT CARE
[2020-02-12] MEDS: TAMSULOSIN HYDROCHLORIDE 0.4 MG CAP PO SCH (17:41)
--- NOTE | 2020-02-12 19:30 | NUR ---
Opening Shift Note Assumed care of patient, awake and alert x4. No S/S of distress/SOB or pain. Instructed on POC and to call for assist PRN, will continue to monitor for changes Q1hr and PRN.
[2020-02-12] MEDS: ATORVASTATIN 20 MG TAB PO SCH (22:09)
[2020-02-12] MEDS: INSULIN LANTUS (GLARGINE) 1 /0.01ml (100units/ml) SC SCH (22:11)
[2020-02-12] MEDS: ACETAMINOPHEN 325 MG TAB PO PRN (23:30)
[2020-02-13] MEDS: ACETAMINOPHEN 325 MG TAB PO PRN (04:01)
[2020-02-13 05:00] VITALS: BP 100/51
--- NOTE | 2020-02-13 05:52 | NUR ---
Patient called asking for his blood sugar to be checked, his accucheck was 69, no insulin or dextrose indicated. Two apple juices were given per patient request will continue to monitor.
[2020-02-13] MEDS: InsuLIN REG 1unit/0.01ml Soln (100units/ml) SC SCH ×3 (05:55→17:44)
[2020-02-13] MEDS: ACCU-CHEK COMFORT CURVE STRIP VI SCH ×3 (05:56→17:43)
[2020-02-13] MEDS: LEVOTHYROXINE SODIUM 100 MCG TAB PO SCH (06:15)
[2020-02-13] MEDS: hydrALAZINE HCL 25 MG TAB PO SCH ×2 (06:15→14:00)
[2020-02-13 06:23] LABS: Potassium 5.3 mmol/L (3.5-5.1)
[2020-02-13 06:31] LABS: BUN/Creatinine Ratio 29.2; Calcium 8.1 mg/dL (8.5-10.1)
--- NOTE | 2020-02-13 07:30 | NUR ---
Opening Shift Note Assumed care of patient, awake and alert. No S/S of distress/SOB or pain. Bed in lowest and locked position with side rails up x2 and call light in reach. Instructed on POC and to call for assist PRN, will continue to monitor for changes Q1hr and PRN.
[2020-02-13 09:16] VITALS: BP 117/52
--- NOTE | 2020-02-13 10:00 | NUR ---
SPOKE TO DR. HAYES. ACCORDING TO DR. HAYES, THE PATIENT IS CLEAR FROM HIS PERSPECTIVE.
[2020-02-13] MEDS: FAMOTIDINE 20 MG TAB PO SCH (10:21)
[2020-02-13] MEDS: cefTRIAXone 1GM/50ML D5W 50 ML IV SCH (10:21)
[2020-02-13] MEDS: AMIODARONE HCL 200 MG TAB PO SCH (10:23)
[2020-02-13] MEDS: ISOSORBIDE MONONITRATE ER 60 MG TAB PO SCH (10:24)
--- NOTE | 2020-02-13 10:50 | NUR ---
WOUND CARE NOTE: IN TO SEE PATIENT AT THIS TIME PER WOUND CARE REQUEST. PATIENT NOW HAS A DISCHARGE ORDER PER MD ORDER AT THIS TIME. PATIENT NOTED UPON ASSESSMENT TO HAVE SKIN INTEGRITY ISSUES. PATIENT HAS CURRENT LOIS SCORE OF 18. PATIENT IS ASSESSED TO SELF TURN/REPOSITION SELF. HE STATES THAT HE IS AMBULATORY WITH AID OF WALKER. PATIENT HAD WOUND PHOTOS TAKEN AT THIS TIME OF INTACT RAISED SCAR TO THE LEFT SACRUM, WITH BLANCHABLE LIGHT REDNESS NOTED TO UPPER SACRUM. RIGHT AND LEFT HEELS NOTED TO HAVE LIGHT RED BLANCHABLE SKIN THAT IS INTACT. HE DOES HAVE A CALLOUS NOTED TO THE RIGHT HEEL THAT IS 0.5 X 0.5 CM, AND A SMALL SCABBED ABRASION OR BLISTER NOTED TO THE LEFT HEEL. SCAB IS 0.5 X 0.5 CM. THERE IS AN OPTIFOAM GENTLE SACRAL DRESSING APPLIED PROPHYLACTIC INTERVENTION, PILLOWS UNDER BOTH HEELS TO OFFLOAD PRESSURE. PATIENT IS SCHEDULED FOR DISCHARGE, NO RECOMMENDATIONS MADE. PATIENT EDUCATED IN WOUND CARE/PRESSURE REDISTRIBUTION. PATIENT VERBALIZED UNDERSTANDING.
--- NOTE | 2020-02-13 11:40 | NUR ---
PATIENT REFUSED PT. RAINE WINN WAS NOTIFIED. Addendum: 02/13/20 at 1140 by CESAR BRUNNER PTT Amended: Links added.
--- NOTE | 2020-02-13 12:00 | NUR ---
SPOKE TO DR. FRANKEL. ACCORDING TO DR. FRANKEL, THERE IS NO NEED FOR CLEARANCE FROM THE TRAFFIC INVESTIGATOR FOR DISCHARGE AND PATIENT CAN BE DISCHARGED.
[2020-02-13 12:48] VITALS: BP 107/53
--- NOTE | 2020-02-13 13:00 | NUR ---
SPOKE TO PATIENTS FAMILY. PER DAUGHTER MARGIE, THEY WILL BE ABLE TO HR CONSULTANT THE PATIENT AROUND 6PM
[2020-02-13 13:19] VITALS: BP 117/52
--- NOTE | 2020-02-13 16:00 | NUR ---
ATTEMPT TO CALL FAMILY FOR DISCHARGE INFORMATION. FAMILY DID NOT ANSWER. LEFT MESSAGE AND AWAITING CALL BACK.
--- NOTE | 2020-02-13 16:50 | NUR ---
Assessment Patient is an 79-year-old male who is alert and oriented. Prior to admission patient lived home with family and functioned independently. Patient informed me he can care for his own ADLs. Per patient he will return home to his prior living arrangements post discharge and family will transport him home. Patients PCP is Dr Crawford. Patient has a fww, cane, and 02 for home use. Advised patient there is a social service consult to resume service. Per patient he is on service with [employer] [facility]. Informed patient clinical information will be faxed to agency. Informed patient he has a right to speak to a social problems specialist regarding all care. Informed patient he has a right to participate in all discharge planning. Patient has a POA and advanced directive. Patient verbalized understanding and agreed to discharge plan. Faxed clinical information to [facility]. Per Eliza with [facility] ) they will resume service for patient within 24hrs upon d/c day. Informed RAINE Zee. Addendum: 02/13/20 at 1658 by JA PALMER Amended: Links added.
[2020-02-13 17:02] VITALS: BP 103/49
[2020-02-13] MEDS: TAMSULOSIN HYDROCHLORIDE 0.4 MG CAP PO SCH (17:47)
--- NOTE | 2020-02-13 19:25 | NUR ---
Received report from manny Lora RN. Patient is sitting at bedside, getting ready to be discharge. Waiting for family to nut picker patient.
--- NOTE | 2020-02-13 19:30 | NUR ---
ENDORSED CARE TO NIGHT NILSON NI. RAINE NOTIFIED NILSON TO EDUCATE THE FAMILY ON DISCHARGE. NILSON NI AWARE.
--- NOTE | 2020-02-13 19:55 | NUR ---
Discharge instructions given as ordered. Encourage to follow up with PMD as instructed. All questions and concerns addressed. Patient verbalized understanding. Medication reconciliation form completed and copy given to patient. IV removed with catheter intact, pressure dressing applied. Telemetry unit returned to ICU. Patient taken to vehicle via wheelchair in a 2LNC with all personal belongings, accompanied by staff and family member. No distress noted at time of departure.
--- NOTE | 2020-02-13 19:55 | NUR ---
Educated patient on the 500ml clear water restrictions, to stop aldactone and to make 's appointments.
== END 2020-02-13 19:55 | disposition home health service (06) | DRG 189 ==
LOC: ER 15:11 → EDBD 15:11 → TELE-WESTW 15:12
PROVIDERS: ADMIT Nurse Practitioner; ATTEND Internal Medicine
DX: J96.21 Acute and chronic respiratory failure with hypoxia (principal); I50.23 Acute on chronic systolic (congestive) heart failure; E87.1 Hypo-osmolality and hyponatremia; E44.0 Moderate protein-calorie malnutrition; N30.00 Acute cystitis without hematuria; I11.0 Hypertensive heart disease with heart failure; D69.6 Thrombocytopenia, unspecified; D63.8 Anemia in other chronic diseases classified elsewhere; Z95.810 Presence of automatic (implantable) cardiac defibrillator; E03.9 Hypothyroidism, unspecified; K74.60 Unspecified cirrhosis of liver; I25.10 Atherosclerotic heart disease of native coronary artery without angina pectoris; E11.40 Type 2 diabetes mellitus with diabetic neuropathy, unspecified; J44.9 Chronic obstructive pulmonary disease, unspecified; B96.1 Klebsiella pneumoniae [K. pneumoniae] as the cause of diseases classified elsewhere; Z88.8 Allergy status to other drugs, medicaments and biological substances; Z95.1 Presence of aortocoronary bypass graft; Z79.84 Long term (current) use of oral hypoglycemic drugs; Z88.1 Allergy status to other antibiotic agents; Z88.0 Allergy status to penicillin; Z88.2 Allergy status to sulfonamides; Z91.041 Radiographic dye allergy status; Z79.899 Other long term (current) drug therapy; Z79.51 Long term (current) use of inhaled steroids; Z79.4 Long term (current) use of insulin; Z90.49 Acquired absence of other specified parts of digestive tract; Z95.5 Presence of coronary angioplasty implant and graft; I25.2 Old myocardial infarction; Z82.49 Family history of ischemic heart disease and other diseases of the circulatory system; Z83.3 Family history of diabetes mellitus; Z80.8 Family history of malignant neoplasm of other organs or systems; Z79.82 Long term (current) use of aspirin; Z68.21 Body mass index [BMI] 21.0-21.9, adult
CPT/HCPCS: 36415; 71045; 76604; 80048; 80053; 81001; 82962; 83735; 83880; 84100; 84443; 84484; 85025; 85610; 85730; 86850; 86900; 86901; 87081; 87086; 93005; 93306; 96365; 97110; 97116; 97163; 97530; G0378; J0696; J1815; J2405; J3490